=== PATIENT | female | born 1945 | race Caucasian/White ===

== ENCOUNTER 2024-01-25 21:56 | Inpatient (IN) | payer MEDICARE, OTHER, SELFPAY ==
[2024-01-25 17:12] VITALS: BP 93/64
[2024-01-25 20:03] VITALS: BP 95/72
[2024-01-25] MEDS: MORPHINE SULFATE 4 MG IV (20:18)
[2024-01-25 20:33] LABS: % Basophils 0.6 % (0-2); % Eosinophils 1.1 % (0-6); % Immature Granulocytes 0.2 % (0-0.5); % Lymphocytes 8.6 % (20.5-51.1); % Monocytes 5.9 % (1.7-9.3); % Neutrophils 83.6 % (42.2-75.2); Absolute Basophils 0.1 10^3/uL (0-0.2); Absolute Eosinophils 0.1 10^3/uL (0-0.7); Absolute Lymphocytes 0.7 10^3/uL (1.2-3.4); Absolute Monocytes 0.5 10^3/uL (0.1-0.6); Absolute Neutrophils 6.7 10^3/uL (1.4-6.5); Hematocrit 38.2 % (37.0-47.0); Hemoglobin 12.3 g/dL (12.0-16.0); Mean Corp Hgb Conc. 32.2 g/dL (33.0-37.0); Mean Corpuscular Hgb 29.9 pg (27.0-31.0); Mean Corpuscular Volume 92.9 fL (81.0-99.0); Nucleated Red Blood Cells % 0 %; Platelet Count 217 10^3/uL (130-400); Red Blood Cell Count 4.11 10^6/uL (4.20-5.40); Red Cell Dist. Width 13.9 % (11.5-14.5)
--- NOTE | 2024-01-25 20:41 | ED.GENMED ---
History of Present Illness
General
Chief Complaint: Vascular Symptoms
Time Seen by Provider: 01/25/24 19:22
History of Present Illness
History of Present Illness:
78-year-old female with history of COPD on 3 L O2, peripheral vascular disease, hypertension, CHF presenting for evaluation of left toe infection. Patient reports about a month ago, she stubbed her first toe. She was managing at home with absent
salt baths, however the nail came off and since then has become increasingly red, swollen, painful. She went to podiatry today, recommending coming to the hospital for evaluation and concern of infection. She denies numbness or tingling. She
denies fever. She denies history of diabetes or toe infections in the past. She denies additional acute medical complaints
Past History
Past History
ED Past Medical History: CAD, CHF, COPD, HTN and Other (Spontaneous pneumothorax, CAD, pulmonary hypertension, tricuspid regurgitation, severe mitral regurgitation)
ED Past Surgical History: Other
Social History
Tobacco: Former smoker
Alcohol: None
Drug: None
Personal:
Living: with family
Phy Exam
Physical Exam
Physical Exam:
General: Well-appearing, no clinical signs of dehydration, nontoxic and in no acute distress
HEENT: protecting airway
Neck: appears supple
CV: Normal heart rate
Resp: No accessory muscle use, no increased work of breathing
Abd: Soft and non-distended, no tenderness to palpation, normal bowel sounds
Extremities: Swelling and erythema to the distal aspect of the left first, second, third toes. Skin breakdown, particularly to the first and third toe with pain on palpation. Distal sensation intact
Neuro: alert, no focal neurologic deficit
: deferred
Rectal: deferred
Psych: Normal affect
Skin: Intact
Course
Orders/Labs/Results
Orders:
Orders
01/25/24 Dinner
Cholesterol Lowering
At Your Request: Limited, Teacher Private Required
Cholesterol Lowering: Sodium, 2 Gram
01/25/24 17:29
CR Foot - Left Min 3 Views Urgent
Comment:
Reason For Exam: pain, non-healing wound
US Periph Venous LOWER Ext LT Urgent
Comment:
Reason For Exam: pain, non-healing wound
01/25/24 19:58
Morphine Sulfate 4 mg IV NOW STA
01/25/24 20:20
CRP [C-Reactive Protein] Urgent
Complete Blood Count/With Diff Urgent
Comprehensive Metabolic Panel Urgent
01/25/24 20:42
Vancomycin 1 Gram/200 ml [Vancocin] 1 gram in 200 ml IV NOW
01/25/24 20:43
Cefepime HCl [Maxipime] 2,000 mg IV NOW STA
01/25/24 21:38
Admit/Transfer Patient As Directed
Co-Sign Provider:
Level of Care: Inpatient admission
Assign to:: IMU- Intermediate Care
Physician / Group: esperanza
Diagnosis: gangrenous toes
Reason for Hospitalization: gangrenous toes
Expected length of stay greater than two midnights?: Yes
ELOS- Estimated Length of Stay in days: 2
I certify the patient meets the requirements for IP care: Yes
Code Status As Directed
Resuscitation Status: Full Code
PRN Pain Medication Management As Directed
May give lesser potent ordered pain med per pt: Yes
preference::
Protocol:: Medication orders for pain may be administered in a
manner that supports deferring to patient preference
when the pt is:
- Requesting an ordered lesser potent pain medication.
Least to most potent pain medications are defined
as: acetaminophen < NSAID < tramadol < opioids
(morphine, oxycodone, hydromorphone).
- Requesting a lesser dose of the same medication IF
ORDERED.
- Requesting a less intrusive route of administration
if both routes are prescribed by the provider (PO <
IV).
01/25/24 21:47
0.9% Sodium Chloride 250 ml [Nss] 250 ml IV BOLUS
01/25/24 22:55
Heparin 4,000 units IV NOW STA
Heparin 73675 Units/250 ml 25,000 units in 250 ml IV PER PROTOCOL
Weight to be used for heparin protocol in kilograms (kg):: 47.4
Protocol:: Vascular Surgery
PTT Goal Range to be used:: PTT 73 to 111 seconds
Order type:: Initial
INITIAL Infusion Dose (UNITS/KG/hr) & then follow protocol:: 18 units/kg/hr
Infusion Dose in UNITS/hr & then follow protocol (UNITS/hr):: 900
INFUSION RATE in mL/hr & then follow protocol (mL/hr):: 9
PTT less than or equal to 64 seconds:: Notify Ordering Provider. obtain orders for rate increase &
possible bolus
PTT 64.1 to 72.9 seconds:: Increase rate by 100 units/hr (+ 1 mL/hr)
PTT 73 to 111 seconds:: Target Range. No change in rate.
PTT 111.1 to 130.9 seconds:: Decrease rate by 100 units/hr (- 1 mL/hr)
PTT 131 to 199.9 seconds:: HOLD for 1 hour. Then decrease rate by 200 units/hr (- 2 mL/hr)
PTT greater than or equal to 200 seconds:: STOP INFUSION. Notify Ordering provider to obtain further orders.
Lab follow-up:: Each change, PTT q6h until 2 consecutive are therapeutic. Then PTT
daily.
VANCOMYCIN Pharmacy to Dose [VANCOCIN Pharmacy to Dose] 1 each Pharmacy To Prepare [Call Pharmacy To Prepare] 0 ml IV PER PROTOCOL
01/25/24 22:55
PODIATRY CONSULT Routine
Consulting Provider: Darcy Herman
Was physician already notified: Yes
Vascular Surgery Consult Routine
Consulting Provider: Sy,Elmer J. III
Was physician already notified: Yes
VTE Contraindication Routine
VTE Mechanical Device Contraindication: Medical Contraindication
Pharmocologic Contraindication: Medical Contraindication
Heparin Protocol- PTT Orders As Directed
PTT per Heparin protocol: -Obtain CBC and baseline PTT - if not already collected.
-Obtain PTT 6 hours from start of infusion. Then, every 6 hours until 2 consecutive
PTT's are therapeutic. Then, PTT Daily.
-With each rate change, obtain PTT every 6 hours until 2 consecutive PTT's are
therapeutic. Then, PTT Daily.
Activity As Directed
Activity Level: As Tolerated
Notify MD As Directed
Notify physician if: PTT is greater than or equal to 200.
Vital Signs As Directed
Frequency: Per unit guidelines
01/25/24 23:29
Complete Blood Count/No Diff Urgent
Comment: Obtain baseline before beginning heparin infusion if not already collected
PTT Urgent
Comment: Obtain baseline before beginning heparin infusion if not already collected
01/26/24 05:28
Complete Blood Count/With Diff IN AM
Comprehensive Metabolic Panel IN AM
01/26/24 08:00
Acetaminophen [Tylenol] 325 mg PO BID
wkdmltiyjpp-nyzlpfcrj-rrhwvbub [Trelegy Ellipta] 1 inh INH R DAILY
Abnormal Lab Results
01/25/24
20:20
RBC 4.11 L 10^6/uL
(4.20-5.40)
MCHC 32.2 L g/dL
(33.0-37.0)
Absolute Neuts (auto) 6.7 H 10^3/uL
(1.4-6.5)
Absolute Lymphs (auto) 0.7 L 10^3/uL
(1.2-3.4)
Neutrophils % 83.6 H %
(42.2-75.2)
Lymphocytes % 8.6 L %
(20.5-51.1)
Potassium 5.7 H mmol/L
(3.5-5.1)
Carbon Dioxide 17 L mmol/L
(22-30)
BUN 38 H mg/dl
(7-17)
Creatinine 1.4 H mg/dL
(0.6-1.0)
Glucose 112 H mg/dl
(70-99)
C-Reactive Protein 34.40 H mg/L
(0.0-10.00)
01/25/24 20:20
01/25/24 20:20
Vital Signs
Initial and Last Documented VS:
Initial Vital Signs
Temp Resp BP Pulse Ox
97.6 F 20 93/64 93
01/25/24 17:12 01/25/24 17:12 01/25/24 17:12 01/25/24 17:12
Last Documented Vital Signs
Temp Pulse Resp BP Pulse Ox
97.4 F 0 32 121/10 47
01/29/24 04:58 01/29/24 05:14 01/29/24 05:10 01/29/24 05:14 01/29/24 05:07
MDM/Problems Addressed
MDM/Problems Addressed:
78-year-old female presenting for evaluation of left toe wound. Vital signs on arrival are significant for mildly low blood pressure.
On exam patient is well-appearing, nontoxic, however uncomfortable secondary to pain. Abnormal examination of the left first, second, third toes with swelling, redness, skin breakdown. Concern for osteomyelitis, know PVD with concern for vascular
insufficiency. X-ray obtained, without obvious evidence of osteomyelitis. DVT ultrasound obtained at request of heavy forger that sent patient in, also normal. Plan for laboratory analysis and admission for nonhealing wounds with concern of
infection, vascular insufficiency. Will plan for broad-spectrum antibiotics and admission. Podiatry on-call made aware, recommending vascular surgery consultation as well.
*Critical Care Note
Total Time (30-74mins, 75-104mins- exclusive of procedures): Not Applicable
ED Attending Note
-
Portions of this chart may have been created with voice recognition software.� Occasional wrong word or��sound alike� substitutions may have occurred due to the inherent limitations of voice recognition software.
Discharge Plan
Departure
Patient Disposition: Admit
Date of Disposition: 01/25/24
Time of Disposition: 21:13
Presentation/result/management discussed w/ accepting MD/DO: Hospitalist
Patient with high blood pressure during this ER visit?: No
Condition: Good
Discharge Problem:
Infection of toe
Interventions
Interventions:
*Risk Screen - Suicide Last Done: 01/25/24 17:12
*General Assessment Last Done: 01/25/24 17:12
*Neglect/Abuse Screening Last Done: 01/25/24 20:26
*ED COVID-19 Vaccine History Last Done: 01/25/24 17:12
*Nursing Disposition Last Done: 01/25/24 22:18
ED- Cardiac Assessment Last Done: 01/25/24 20:25
ED-Peripheral Vascular Assessment Last Done: 01/25/24 20:25
ED-Skin Assessment Last Done: 01/25/24 20:25
Discharge Date and Time
Discharge Date/Time: 01/25/24 22:19
[2024-01-25] MEDS: MAXIPIME 2000 MG IV (20:49)
[2024-01-25 20:52] LABS: ALT (SGPT) 13 U/L (0-35); AST (SGOT) 35 U/L (14-36); Alkaline Phosphatase 65 U/L (38-126); Blood Urea Nitrogen 38 mg/dl (7-17); Carbon Dioxide 17 mmol/L (22-30); Chloride 106 mmol/L (98-107); Estimated Creatinine Clearance 24 ml/min; Glucose 112 mg/dl (70-99); Potassium 5.7 mmol/L (3.5-5.1); Sodium 140 mmol/L (135-145); Total Bilirubin 1.3 mg/dl (0.2-1.3); Total Protein 7.1 g/dl (6.3-8.2); eGFR 38.27
[2024-01-25] MEDS: VANCOCIN 200 IV (21:30)
--- NOTE | 2024-01-25 21:44 | HPS.HSE ---
Family Physician
-
Family Physician: Kaila Soria
Chief Complaint
-
toe gangrene
History of Present Illness
70-year-old female past medical history of chronic hypoxemic respiratory failure secondary to HFpEF, paroxysmal atrial fibrillation, pulmonary hypertension, hypertension, COPD on 3 L baseline, peripheral vascular disease, presenting for left toe
infection. A month ago she stubbed her left big toe. She was managing at home with salt baths however the nail came off and since then the areas become increasingly red, swollen and painful. She went to podiatry today who recommend she come to
the hospital for concern of infection. She denies numbness or tingling. She denies fever. She denies history of diabetes or toe infection in the past.
She drinks 1 glass of wine per night. Denies smoking.
Medical History
Past Medical History
Past Medical History: Reports Other (chronic hypoxemic respiratory failure secondary to HFpEF, paroxysmal atrial fibrillation, pulmonary hypertension, hypertension, COPD on 3 L baseline, peripheral vascular disease)
Past Surgical History: Reports None
Social History
Tobacco: Non-smoker
Alcohol: Daily
Drug: None
Family History
Family History: Not pertinent
Allergies / Home Medications
Allergies reflects when Allergies were last updated in [employer].
Home Medications with original date entered in [employer]
Allergy/Medication List:
Allergies
Allergy/AdvReac Type Severity Reaction Status Date / Time
No Known Allergies Allergy Verified 11/30/22 16:01
Home Medications
fluticasone fur. 200 mcg-umeclid 62.5 mcg-vilant 25 mcg inhalat.powder (Trelegy Ellipta) 1 inh inhalation R DAILY Lung/breathing issues ##0 07/23/21
apixaban 5 mg tablet (Eliquis) 5 mg PO BID #0 tabs 08/25/22
furosemide 40 mg tablet 40 mg PO DAILY #0 tabs 08/25/22
acetaminophen 325 mg tablet (Tylenol) 325 mg PO BID 11/18/24
dapagliflozin propanediol 10 mg tablet (Farxiga) 10 mg PO DAILY 01/25/24
sacubitril 24 mg-valsartan 26 mg tablet (Entresto) 1 tab PO BID 01/25/24
spironolactone 25 mg tablet 25 mg PO DAILY 01/25/24
Review of Systems
-
History Source: Patient
A 12 point ROS was completed and negative except as noted: Yes
Constitutional: Reports No Symptoms
EENT: Reports No Symptoms
Respiratory: Reports No Symptoms
Cardiac: Reports No Symptoms
Abdomen/GI: Reports No Symptoms
: Reports No Symptoms
Musculoskeletal: Reports No Symptoms
Skin: Reports See HPI
Neurological: Reports No Symptoms
Endocrine: Reports No Symptoms
Hematologic/Lymphatic: Reports No Symptoms
Psych: Reports No Symptoms
Physical Exam
Vital Signs
Vital Signs
Temp Pulse Resp BP Pulse Ox
97.6 F 92 20 95/72 97
01/25/24 17:12 01/25/24 20:03 01/25/24 20:03 01/25/24 20:03 01/25/24 20:03
Physical Exam
General: Well Developed, Well Nourished and No Apparent Distress
HEENT: NormoCephalic, Moist mucous membranes and Atraumatic
Respiratory: Clear
Cardiac: S1/S2 and Regular Rhythm; No Murmur or Rub
GI: Soft, Non Tender, Non Distended and Normal Bowel Sounds; No Organomegaly
Rectal: Deferred by Provider
Musculoskeletal: No Clubbing, No Cyanosis and No Edema
Skin: Other (left first to thurd toe redness, tenderness and gangrene under toenails ); No Rash
Neuro: Nonfocal/grossly intact
Laboratory Results
-
01/25/24 20:20
01/25/24 20:20
Laboratory Results
Total Bilirubin 1.3 mg/dl (0.2-1.3) 01/25/24 20:20
AST 35 U/L (14-36) 01/25/24 20:20
ALT 13 U/L (0-35) 01/25/24 20:20
Alkaline Phosphatase 65 U/L (38-126) 01/25/24 20:20
Data Reviewed
-
Lab Data: Labs Reviewed by me
Old Records: Reviewed
Impression/Plan
-
IMPRESSION:
PLAN:
# Infected left 1st-3rd toes with gangrene concern for underlying vascular insufficiency
# History of peripheral vascular disease
-Foot x-ray negative for osteomyelitis
-Venous ultrasound negative for DVT
-Vancomycin/Zosyn
-Podiatry consult
-Vascular surgery consulted
-Hold Eliquis and change to heparin drip
# Hypotension likely secondary to diuretics
-Systolic blood pressure 90s
-Hold diuretics
Chronic hypoxemic respiratory failure secondary to chronic HFpEF
-Hold spironolactone and Lasix, Entresto due to hypotension
-Hold dapagliflozin
Paroxysmal atrial fibrillation
-Hold Eliquis
-Start heparin drip
Pulmonary hypertension
COPD on 3 L baseline
-Continue Trelegy Ellipta
Essential hypertension
Full code
DVT prophylaxis�heparin drip
Cardiac diet
[2024-01-25 21:48] VITALS: BP 100/56
[2024-01-25 22:12] VITALS: BP 98/85
[2024-01-25 22:17] VITALS: BP 98/85
[2024-01-25 22:40] VITALS: BP 90/57
--- NOTE | 2024-01-25 23:05 | PHA.VAN.IN ---
Assessment
- Assessment
Renal Function: Appears elevated from baseline (02/13/23 BASELINE SCR: 1.1)
Concomitant Antimicrobials: ZOSYN
- Previous Dosing Experience
Previous Regimen: NONE
Plan
- Plan
Initial / Loading Dose: 1GM
Maintenance Regimen: DOSING BY RANDOM LEVELS
Monitoring: RANDOM VANCOMYCIN LEVEL 01/26/24 AM
Pharmacokinetics Vancomycin I
- -
Patient Age: 78
Patient Sex: Female
Vancomycin Day #: 1
Indication: Skin And Soft Tissue (GANGRENE)
Requesting Provider: BRITTA
Height / Weight:
Height 5 ft 6 in
Actual Weight 47.4 kg
- Vital Signs / Lab Results
Temp Pulse Resp BP Pulse Ox
97.8 F 89 14 98/85 99
01/25/24 22:58 01/25/24 22:17 01/25/24 22:17 01/25/24 22:17 01/25/24 21:48
Lab Results - Hematology
01/25/24
20:20
WBC 8.0
Lab Results - Chemistry
01/25/24
20:20
BUN 38 H
Creatinine 1.4 H
Estimated Creat Clear 24
Albumin 4.0
[2024-01-25] MEDS: NSS 250 IV (23:11)
[2024-01-25] MEDS: DESENEX/MITRAZOL/ZEASORB TOPICAL (23:21)
[2024-01-25] MEDS: HEPARIN 4000 UNITS IV (23:30)
[2024-01-25] MEDS: HEPARIN 25000 UNITS/250 ML IV (23:36)
[2024-01-25 23:38] LABS: Hematocrit 36.7 % (37.0-47.0); Hemoglobin 11.8 g/dL (12.0-16.0); Mean Corp Hgb Conc. 32.2 g/dL (33.0-37.0); Mean Corpuscular Hgb 29.8 pg (27.0-31.0); Mean Corpuscular Volume 92.7 fL (81.0-99.0); Mean Platelet Volume 8.8 fL (7.4-10.4); Platelet Count 186 10^3/uL (130-400); Red Blood Cell Count 3.96 10^6/uL (4.20-5.40); Red Cell Dist. Width 13.9 % (11.5-14.5); White Blood Cell Count 7.1 10^3/uL (4.8-10.8)
[2024-01-26] VITALS (26 sets, daily range): BP systolic 69–119; BP diastolic 38–89; BMI 16.2
[2024-01-26] MEDS: ZOSYN 50 IV ×4 (01:23→20:33)
--- NOTE | 2024-01-26 05:38 | PTCARENOTE ---
Recieved patient from the ED overnight. 250 ml bolus infused for soft BPs. Heparin gtt initiated per order. B/l foot wounds open to air.
[2024-01-26 05:46] LABS: % Basophils 0.6 % (0-2); % Eosinophils 4.5 % (0-6); % Immature Granulocytes 0.5 % (0-0.5); % Monocytes 8.2 % (1.7-9.3); % Neutrophils 72.2 % (42.2-75.2); Absolute Eosinophils 0.3 10^3/uL (0-0.7); Absolute Lymphocytes 0.9 10^3/uL (1.2-3.4); Absolute Monocytes 0.5 10^3/uL (0.1-0.6); Absolute Neutrophils 4.7 10^3/uL (1.4-6.5); Hematocrit 38.3 % (37.0-47.0); Hemoglobin 12.2 g/dL (12.0-16.0); Mean Corp Hgb Conc. 31.9 g/dL (33.0-37.0); Mean Corpuscular Hgb 29.8 pg (27.0-31.0); Mean Corpuscular Volume 93.4 fL (81.0-99.0); Mean Platelet Volume 8.7 fL (7.4-10.4); Nucleated Red Blood Cells % 0 %; Platelet Count 200 10^3/uL (130-400); Red Cell Dist. Width 13.9 % (11.5-14.5); White Blood Cell Count 6.4 10^3/uL (4.8-10.8)
[2024-01-26 06:07] LABS: APTT > 200 Sec (23.4-35.0); Vancomycin Random 14.5 ug/ml
[2024-01-26 06:14] LABS: ALT (SGPT) 12 U/L (0-35); AST (SGOT) 30 U/L (14-36); Albumin 3.8 g/dl (3.5-5.0); Alkaline Phosphatase 69 U/L (38-126); Blood Urea Nitrogen 35 mg/dl (7-17); Calcium 9.1 mg/dl (8.4-10.2); Carbon Dioxide 21 mmol/L (22-30); Chloride 108 mmol/L (98-107); Estimated Creatinine Clearance 23 ml/min; Glucose 95 mg/dl (70-99); Sodium 141 mmol/L (135-145); Total Bilirubin 1.4 mg/dl (0.2-1.3); eGFR 38.27
--- NOTE | 2024-01-26 06:16 | PTCARENOTE ---
Addendum entered by Sadaf Galvin RN 01/26/24 06:25:
yard caller provider ordered to hold heparin x2 hours and repeat PTT.
Original Note:
Critical PTT greater than 200. Infusion placed on hold and almond sorter provider notified.
[2024-01-26] MEDS: SYMBICORT 160/4.5 MCG INHALER 2 PUFF INH ×2 (07:43→19:10)
[2024-01-26] MEDS: SPIRIVA RESPIMAT 2.5 MCG 2 PUFF INH (07:43)
--- NOTE | 2024-01-26 08:39 | PHA.VAN.FU ---
Vancomycin Assessment / Plan
- Assessment
Renal Function: Stable
WBC's are: WNL
In the past 24 hrs, patient has been: Afebrile
Concomitant Antimicrobials: piperacillin/tazobactam
- Assessment - Therapeutic Drug Monitoring
Random Level: 14.5 - drawn ~8H after 1000mg initial dose
- Dosing Plan
Dosing by Level: Re-dose today (Vanc 500mg)
- Monitoring Plan
Random Level: 01/26 06
- Follow Up
Pharmacy will continue to follow.
Vancomycin Follow UP
- -
Patient Age: 78
Patient Sex: Female
Vancomycin Day #: 2
Indication: Skin And Soft Tissue
Requesting Provider: Dr. Adamson
Pertinent Antimicrobial Allergies:
NKDA
Height / Weight:
Height 5 ft 6 in
Actual Weight 45.6 kg
IBW in k
Pertinent Past Medical History: BMI ~16, COPD (home O2)
- Vital Signs / Lab Results
Temp Pulse Resp BP Pulse Ox
97.8 F 88 18 102/57 97
01/26/24 07:38 01/26/24 07:46 01/26/24 07:46 01/26/24 06:00 01/26/24 07:46
Lab Results - Hematology
01/25/24 01/25/24 01/26/24
20:20 23:29 05:28
WBC 8.0 7.1 6.4
Lab Results - Chemistry
01/25/24 01/26/24
20:20 05:28
BUN 38 H 35 H
Creatinine 1.4 H 1.4 H
Estimated Creat Clear 24
Albumin 4.0 3.8
Therapeutic Drug Monitoring
Random Vancomycin 14.5 ug/ml 01/26/24 05:28
[2024-01-26] MEDS: TYLENOL 325 MG PO ×2 (08:45→20:32)
[2024-01-26] MEDS: DESENEX/MITRAZOL/ZEASORB 1 APPLIC TOPICAL ×2 (08:46→20:35)
--- NOTE | 2024-01-26 08:53 | W.PN.HOSP.TC ---
Today's Communication/Plan
-
Heparin drip. IV antibiotics. IV fluid.
Assessment / Plan
Assessment / Plan
Physical exam:
General: Well Developed, Well Nourished and No Apparent Distress
HEENT: NormoCephalic, Moist mucous membranes and Atraumatic
Respiratory: Clear
Cardiac: S1/S2 and Regular Rhythm; No Murmur or Rub
GI: Soft, Non Tender, Non Distended and Normal Bowel Sounds; No Organomegaly
Rectal: Deferred by Provider
Musculoskeletal: No Clubbing, No Cyanosis and No Edema
Skin: Other (left first to thurd toe redness, tenderness and gangrene under toenails ); No Rash
Neuro: Nonfocal/grossly intact
A/P:
# Infected left 1st-3rd toes with gangrene concern for underlying vascular insufficiency
# History of peripheral vascular disease
-Foot x-ray negative for osteomyelitis
-Venous ultrasound negative for DVT
-Vancomycin/Zosyn
-Podiatry consult appreciated
-Vascular surgery consulted and appreciated input--> planning to do CTA with runoff but given LARA, holding off for now.
-Hold Eliquis and changed to heparin drip
# Hypotension likely secondary to diuretics and mild volume depletion.
-Systolic blood pressure 90s--> it dropped again today so given a bolus and will continue with some maintenance fluids and asked nephrology to evaluate as well.
-Hold diuretics
-IVF
#LARA
Nephrology consult-discussed with nephrology via [facility] text today
Chronic hypoxemic respiratory failure secondary to chronic HFpEF and COPD
-Continue 3 L of oxygen which is her home baseline
-Hold spironolactone and Lasix, Entresto due to hypotension
-Hold dapagliflozin
Paroxysmal atrial fibrillation
-Hold Eliquis
-Continue heparin drip
Pulmonary hypertension
COPD on 3 L baseline
-Continue Trelegy Ellipta
Essential hypertension
Full code
DVT prophylaxis�heparin drip
Time spent 55 minutes
Anticipated Discharge: > 48 hours
Subjective/Interval History
-
Date of Service: January 26, 2024
Patient does have left lower extremity pain. No chest pain or shortness of breath.
Objective Data
-
Labs:
Laboratory Results
01/25/24 01/25/24 01/26/24
20:20 23:29 05:28
WBC 7.1 6.4
Hgb 11.8 L 12.2
Hct 36.7 L 38.3
Plt Count 186 200
APTT 35.0 > 200 H*
Sodium 140 141
Potassium 5.7 H 5.0
Chloride 106 108 H
Carbon Dioxide 17 L 21 L
BUN 38 H 35 H
Creatinine 1.4 H 1.4 H
Glucose 112 H 95
Calcium 9.0 9.1
Total Bilirubin 1.3 1.4 H
AST 35 30
ALT 13 12
Alkaline Phosphatase 65 69
01/26/24
08:30
WBC
Hgb
Hct
Plt Count
APTT Pending
Sodium
Potassium
Chloride
Carbon Dioxide
BUN
Creatinine
Glucose
Calcium
Total Bilirubin
AST
ALT
Alkaline Phosphatase
Vital Signs:
Vital Signs
Temp Pulse Resp BP Pulse Ox
97.8 F 88 18 102/57 97
01/26/24 07:38 01/26/24 07:46 01/26/24 07:46 01/26/24 06:00 01/26/24 07:46
I&O
01/25/24 01/26/24 01/27/24
06:59 06:59 06:59
Intake Total 300 / 300
Output Total 150 / 150
Balance 150 / 150
[2024-01-26 09:48] LABS: APTT 52.2 Sec (23.4-35.0)
--- NOTE | 2024-01-26 09:51 | CON.VAS ---
Addendum entered and electronically signed by Elmer Sy III, MD 01/26/24 11:50:
This patient was seen and examined with KATH Saunders. I agree with the history and physical exam as well as the assessment and plan. I have the following additions:
78-year-old female with multiple advanced medical comorbidities presents with chronic limb threatening ischemia of the left foot with ischemic rest pain and tissue loss.
Advanced COPD with home oxygen requirement
Nonpalpable pedal pulses bilaterally
Nonpalpable left femoral pulse
Will obtain vascular lab studies
Also obtain CT angiogram of the abdomen, pelvis and bilateral lower extremity runoff given absent femoral pulse and possible aortoiliac/iliofemoral disease
Will follow and formulate a surgical plan once imaging is complete
Signed:
Elmer Sy III, MD
[facility] Vascular Surgery
[phone] (emnr)
Original Note:
Consultation
Consultation Request
Performing Provider: Yossi
Reason for Consultation: Gangrene
Medical History
-
Chief Complaint: Left toe gangrene
History of Present Illness:
78 yo female past medical history of chronic hypoxemic respiratory failure secondary to HFpEF, paroxysmal atrial fibrillation, pulmonary hypertension, hypertension, COPD on 3 L baseline, peripheral vascular disease, presenting for left foot toe
infection. Per the patient she stubbed her left big toe about a month ago. Since then her first and second toe nail were ingrown. She used salt bath soaks daily and recently removed her toe nails. Following this the toes became red and painful. She
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 She denies history of wound healing issues. Nonsmoker, drinks wine daily.
Vascular consult for PAD evaluation. Pt seen at bedside this am with Dr Sy. Images of BL feet below.
Left foot
Right foot
Past Medical History
Past Medical History: Other (chronic hypoxemic respiratory failure secondary to HFpEF, paroxysmal atrial fibrillation, pulmonary hypertension, hypertension, COPD on 3 L baseline, peripheral vascular disease)
Past Surgical History: None
Social History
Tobacco: Non-Smoker
Alcohol: Daily
Drug: None
Family History
Family History: Reviewed & Not Pertinent
Allergies / Home Medications
Allergy/AdvReac Type Severity Reaction Status Date / Time
No Known Allergies Allergy Verified 11/30/22 16:01
�Medication �Instructions �Recorded �Confirmed �Type
fluticasone fur. 200 mcg-umeclid 1 inh inhalation R DAILY 07/23/21 01/25/24 History
62.5 mcg-vilant 25 mcg Lung/breathing issues ##0
inhalat.powder (Trelegy Ellipta)
acetaminophen 325 mg tablet 325 mg PO BID Pain 01/25/24 01/25/24 History
(Tylenol)
dapagliflozin propanediol 10 mg 10 mg PO DAILY Diabetes 01/25/24 01/25/24 History
tablet (Farxiga)
sacubitril 24 mg-valsartan 26 mg 1 tab PO BID Heart 01/25/24 01/25/24 History
tablet (Entresto) Disease/Condition
spironolactone 25 mg tablet 25 mg PO DAILY Fluid 01/25/24 01/25/24 History
Retention/Swelling
apixaban 5 mg tablet (Eliquis) 5 mg PO BID Blood Clot 01/26/24 01/25/24 History
Prevention/Tx
furosemide 40 mg tablet 40 mg PO DAILY Fluid 01/26/24 01/25/24 History
Retention/Swelling
Review of Systems
-
History Source: Patient
All other systems: Negative unless noted
Constitutional: Reports No Symptoms
EENT: Reports No Symptoms
Respiratory: Reports No Symptoms
Cardiac: Reports No Symptoms
Vascular: Denies Leg Pain / Claudication
Abdomen/GI: Reports No Symptoms
: Reports No Symptoms
Musculoskeletal: Reports No Symptoms
Skin: Reports Other (Left 1st and 2nd toe gangrene)
Neurological: Reports No Symptoms
Endocrine: Reports No Symptoms
Physical Exam
Vital Signs
Temp Pulse Resp BP Pulse Ox
97.8 F 88 18 102/57 97
01/26/24 07:38 01/26/24 07:46 01/26/24 07:46 01/26/24 06:00 01/26/24 07:46
Lab Results
01/26/24 05:28
01/26/24 05:28
Physical Exam
General: No Apparent Distress
HEENT: Normocephalic and Atraumatic
Respiratory: Non Labored Respirations
Cardiac: Negative JVD
GI: Soft and Non Tender
Musculoskeletal: No Clubbing, No Cyanosis and No Edema
Skin: Warm, Dry and Other (See images above)
Neuro: Awake, Alert and Oriented
Psych: Calm
Pulses: Bilateral Femoral: Doppler (nonpalp), Bilateral Dorsalis Pedis: Doppler (Nonpalp) and Bilateral Posterior Tibial: Doppler (nonpalp)
Assessment / Plan
-
78 yo female with nonhealing BL foot wounds L>R, pain
Plan:
-CTA runoff when ok from nephrology standpoint
-Nephrology consult for creat 1.4
-Likely will require arteriogram on this admission
-Will follow up with plan after scan complete
-Team aware
Data Reviewed
-
Labs: Labs Reviewed by me
[2024-01-26] MEDS: NSS 1000 IV ×2 (10:37→15:09)
--- NOTE | 2024-01-26 10:50 | PTCARENOTE ---
Assumed care of pt this am, pt is easily arousable but slow verbal responses, speech is clear and pt moving all extremities. Pt tolerating small breakfast. Oxygen at 3L nc which is her baseline. Lungs clear through out. Abd flat soft, no Bm at this
time. Pt tolerated eggs and oJ. No urinary output since 714. Pt hypotensive, IV FLUID bolus ordered and initiated. Vascular team assessed pt this am and order for scan. Pedal pulses are not palpable. bilateral dorsal pedis not found with doppler,
Rt posterior tibial weak with doppler bilateral popliteal weak with doppler and bilateral groin weak with doppler. Heparin of this am for >200 PTT, lab obtained and result is 52.2, Dr. Dominguez at bedside and notified of lab result. Order obtained and
Heparin gtt resumed at 800 units-will recheck PTT per protocol. Pt's called and verbal update on eriberto of care provided to him. Pt resting comfortably on her side at this time. Nephrology consulted also.
--- NOTE | 2024-01-26 10:52 | CON.MD ---
Consultation - Medical
-
Consult Dr Kavita Caputo 01/25/24 @ 2009
Consult performed by Dr Darcy Herman 01/26/24 @ 1050
Chief Complaint:
Gangrene toes left foot
History of Present Illness:
This is a 70-year-old female past medical history of chronic hypoxemic respiratory failure secondary to HFpEF, paroxysmal atrial fibrillation, pulmonary hypertension, hypertension, COPD on 3 L baseline, peripheral vascular disease, presenting for
left toe infection. A month ago she stubbed her left big toe. She was managing at home with salt baths however the nail came off and since then the areas become increasingly red, swollen and painful. She went to see Dr Luong, podiatry 01/25/24
who recommended she go to the ED. She denies fever. She admits to pain in her feet and toes left
Medical History
Past Medical History: Reports Other (chronic hypoxemic respiratory failure secondary to HFpEF, paroxysmal atrial fibrillation, pulmonary hypertension, hypertension, COPD on 3 L baseline, peripheral vascular disease)
Past Surgical History: Reports None
Social History
Tobacco: Non-smoker
Alcohol: Daily
Drug: None
Family History
F
amily History: Not pertinent
Allergies / Home Medications
Allergies reflects when Allergies were last updated in [facility].
Home Medications with original date entered in [facility]
Allergy/Medication List:
Allergies
Allergy/AdvReac Type Severity Reaction Status Date / Time
No Known Allergies Allergy Verified 11/30/22 16:01
Home Medications
fluticasone fur. 200 mcg-umeclid 62.5 mcg-vilant 25 mcg inhalat.powder (Trelegy Ellipta) 1 inh inhalation R DAILY Lung/breathing issues ##0 07/23/21
apixaban 5 mg tablet (Eliquis) 5 mg PO BID #0 tabs 08/25/22
furosemide 40 mg tablet 40 mg PO DAILY #0 tabs 08/25/22
acetaminophen 325 mg tablet (Tylenol) 325 mg PO BID 01/25/24
dapagliflozin propanediol 10 mg tablet (Farxiga) 10 mg PO DAILY 01/25/24
sacubitril 24 mg-valsartan 26 mg tablet (Entresto) 1 tab PO BID 01/25/24
spironolactone 25 mg tablet 25 mg PO DAILY 01/25/24
Review of Systems
-
History Source: Patient
A 12 point ROS was completed and negative except as noted: Yes
Physical Exam
Vital Signs
Vital Signs
Temp Pulse Resp BP Pulse Ox
97.6 F 92 20 95/72 97
01/25/24 17:12 01/25/24 20:03 01/25/24 20:03 01/25/24 20:03 01/25/24 20:03
Physical Exam
General: Well Developed, Well Nourished and No Apparent Distress
LE focused: gangrene -dry to toes 1,2,3 left foot. Legs and feet cool to touch ,pedal pulses are non palpable
No cellultiis noted to legs. She is guarding and retracting legs as result of pain
Laboratory Results
-
Laboratory Results
Total Bilirubin 1.3 mg/dl (0.2-1.3) 01/25/24 20:20
AST 35 U/L (14-36) 01/25/24 20:20
ALT 13 U/L (0-35) 01/25/24 20:20
Alkaline Phosphatase 65 U/L (38-126) 01/25/24 20:20
XRAYS- personally reviewed, no overt sign of PM to the distal phalynx at this time
Data Reviewed
Lab Data: Labs Reviewed by me
Old Records: Reviewed
Impression/Plan
Peripheral arterial disease with dry gangrene to toes left foot
Pain LLE
--rec betadine swabs to toes daily, once revasc will follow as they demarcate for change to wound care or possible amps if needed, will follow prn
-
[2024-01-26] MEDS: VANCOCIN HCL 500 MG 100 IV (11:46)
--- NOTE | 2024-01-26 12:28 | W.CON.NEPH ---
Consultation
-
Date/Time Consultation Requested: 01/26/24 1009
Date/Time Consultation Performed: 01/26/24 1030
Requesting Provider: Juleit Anaya CRNP
Performing Provider: Cristal Melara
Reason for Consultation: Lara vs CKD
Medical History
-
Chief Complaint: Toe gangrene
History of Present Illness:
70-year-old female past medical history of chronic hypoxemic respiratory failure on 3lit O2 cor pulmonale, COPD, HFpEF on lasix, Aldactone, Entresto, Farxiga, severe MR, paroxysmal atrial fibrillation on Eliquis, hypertension, peripheral vascular
disease, presenting for left toe infection referred by podiatry. A month ago she stubbed her left big toe. She was managing at home with salt baths however the nail came off and since then the areas become increasingly red, swollen and painful.
She went to podiatry today who recommend she come to the hospital for concern of infection. She denies fever. She denies history of diabetes. Brand Designer CP or SOB or n/v. No abd pain. HIstory is limited during visit SBP are at 70s.NS bolus just started.
SHe denies any dizziness. Her cr since admit was at 1.4, previously at 1.1 in 02/2023. K was high at 5.7 on admit since improved to 5 this am.
Past Medical History
chronic hypoxemic respiratory failure secondary to HFpEF, paroxysmal atrial fibrillation, pulmonary hypertension, hypertension, COPD on 3 L baseline, peripheral vascular disease
Social History
Tobacco: Non-Smoker
Alcohol: Daily
Drug: None
Personal:
Living: With Family
Family History
no CKD
Family History: Not Pertinent
Allergies / Home Medications
Allergy/AdvReac Type Severity Reaction Status Date / Time
No Known Allergies Allergy Verified 11/30/22 16:01
�Medication �Instructions �Recorded �Confirmed �Type
fluticasone fur. 200 mcg-umeclid 1 inh inhalation R DAILY 07/23/21 01/25/24 History
62.5 mcg-vilant 25 mcg Lung/breathing issues ##0
inhalat.powder (Trelegy Ellipta)
acetaminophen 325 mg tablet 325 mg PO BID Pain 01/25/24 01/25/24 History
(Tylenol)
dapagliflozin propanediol 10 mg 10 mg PO DAILY Diabetes 01/25/24 01/25/24 History
tablet (Farxiga)
sacubitril 24 mg-valsartan 26 mg 1 tab PO BID Heart 01/25/24 01/25/24 History
tablet (Entresto) Disease/Condition
spironolactone 25 mg tablet 25 mg PO DAILY Fluid 01/25/24 01/25/24 History
Retention/Swelling
apixaban 5 mg tablet (Eliquis) 5 mg PO BID Blood Clot 01/26/24 01/25/24 History
Prevention/Tx
furosemide 40 mg tablet 40 mg PO DAILY Fluid 01/26/24 01/25/24 History
Retention/Swelling
Review of Systems
-
limited history
All complete 12 point ROS have been inquired and found negative other than stated in HPI
Physical Exam
Vital Signs
Vital Signs
Temp Pulse Resp BP Pulse Ox
97.8 F 88 18 102/57 97
01/26/24 07:38 01/26/24 07:46 01/26/24 07:46 01/26/24 06:00 01/26/24 07:46
Lab Results
WBC 6.4 10^3/uL (4.8-10.8) 01/26/24 05:28
RBC 4.10 10^6/uL (4.20-5.40) L 01/26/24 05:28
Hgb 12.2 g/dL (12.0-16.0) 01/26/24 05:28
Hct 38.3 % (37.0-47.0) 01/26/24 05:28
Plt Count 200 10^3/uL (130-400) 01/26/24 05:28
Sodium 141 mmol/L (135-145) 01/26/24 05:28
Potassium 5.0 mmol/L (3.5-5.1) 01/26/24 05:28
Chloride 108 mmol/L (98-107) H 01/26/24 05:28
Carbon Dioxide 21 mmol/L (22-30) L 01/26/24 05:28
BUN 35 mg/dl (7-17) H 01/26/24 05:28
Creatinine 1.4 mg/dL (0.6-1.0) H 01/26/24 05:28
eGFR 38.27 01/26/24 05:28
Glucose 95 mg/dl (70-99) 01/26/24 05:28
Calcium 9.1 mg/dl (8.4-10.2) 01/26/24 05:28
Albumin 3.8 g/dl (3.5-5.0) 01/26/24 05:28
Physical Exam
General: Awake, Alert, Oriented, AOx3, No Distress and Nontoxic
HEENT: EOMI, Anicteric, Facial Symmetry and Trachea Midline
Respiratory: Clear, Normal Excursion and Nonlabored Respirations
Cardiac: S1/S2 and Regular Rate/Rhythm
Breast: Deferred by me
Abdomen: Soft, Nontender and Nondistended
Musculoskeletal: No Edema
Skin: Other (erythema of feet and toe gangrene noted left foot. no DPS, feels could to touch)
Neuro: Nonfocal/Grossly Intact
Psych: Appropriate
Data Reviewed
-
Radiology: Report Reviewed by me and Discussed with Family
Labs: Labs Reviewed by me, Discussed with Patient and Discussed with Family
Assessment/Plan
-
IMP:
Infected left 1st-3rd toes with gangrene concern for underlying vascular insufficiency
History of peripheral vascular disease
Hypotension
LARA with CKD baseline cr 1.1 in 02/2023
Mild A gap met acidosis
Chronic hypoxemic respiratory failure, COPD
chronic HFpEF
Paroxysmal atrial fibrillation
Pulmonary hypertension
COPD on 3 L baseline
Essential hypertension
Plan;
A/w chr left LE ischemic symp
LARA-mild likely from hypotension
cont IVF and monitor UOP
check bladder scan, also FEna , baseline renal US
has underlying pulm HTN too
currently holding lasix, Entresto, Farxiga and Aldactone
avoid nephrotoxins
mild met acidosis -improving
ALMA risk based on current status is 57%(included hypotension and CHF in to the formula)-this was reviewed with
who wants to wait for cr to get better prior contrast load-which I agree with
once BP stabilizes can use bicarb IVF for ALMA prevention
All risk factors can not be modifiable, at the best ALMA risk is 26%, dialysis risk 1%
ok to proceed with CTA once cr return close to baseline
abx dose renally per primary
vol status seem stable currently
on heparin gtt
d/w vascular and nursing
d/w on phone
--- NOTE | 2024-01-26 13:05 | WOUNDNOTE ---
[facility] RN note: Patient admitted with
See H&P for complete history.
PMH: Per Dr. Herman's note-This is a 70-year-old female past medical history of chronic hypoxemic respiratory failure secondary to HFpEF, paroxysmal atrial fibrillation, pulmonary hypertension, hypertension, COPD on 3 L baseline, peripheral
vascular disease, presenting for left toe infection. A month ago she stubbed her left big toe. She was managing at home with salt baths however the nail came off and since then the areas become increasingly red, swollen and painful. She went to
see Dr Luong, podiatry 01/25/24 who recommended she go to the ED.
Wound Location and type/assessment: Patient admitted with: Painful to touch L toes and heel. L lateral foot with dry eschar, heel with 4 linear dry cracks. L Great toe, 2nd and 3rd with dry sanabria eschar. R plantar with dry crack and 2nd toe scab.
Both legs dry and red, PAD ulcers. Reviewed vascular notes, per AZAR Hedrick, non palpable pedal pulses, will follow and decide on surgical intervention once imaging complete. L foot x ray negative osteomyelitis, and ultrasound negative for DVT.
Patient turned self in bed, Sacrum is intact, sacral silicone foam in use.
Appetite: Fair. Had yogurt for breakfast.
Pressure redistribution devices in place: On air mattress can turn self. Air cushion on pillow under calves to offload heel
Plan: Foam adhesives applied to heels, offloading in place. Painted eschar with Betadine per Dr. Herman.
Will confirm orders with hospitalist and updated nurse. Updated care plan and will follow peripherally as needed.
Note to case management of equipment requested for discharge: TBD
Recommend follow up with vascular.
--- NOTE | 2024-01-26 16:01 | CM ---
CM met with pt bedside
Resides at home with her spouse- multistory house with 2TE
Full flight to 2nd floor
Pt notes independence with her ambulation and most personal care tasks with use of a SPC
Spouse assists with managing stairs and occasionally with personal care tasks if needed
Pt is on 3LO2 provided through [facility]
Denies financial insecurities
PCP- Kaila Soria
Rx- Emma Ordaz
Pt will likely benefit from PT/OT evals once appropriate
Hx at [facility]
Discharge Disposition- home, follow for higher needs
[2024-01-26 16:33] LABS: Urine Albumin Negative (Neg - Trace); Urine Bilirubin Negative (Negative); Urine Character Clear (Clear); Urine Color Yellow; Urine Glucose 2+ (Negative); Urine Ketone Negative (Negative); Urine Leukocyte Negative (Negative); Urine Nitrite Negative (Negative); Urine Occult Blood Negative (Negative); Urine Specific Gravity 1.015 (<1.030); Urine Urobilinogen Negative (Neg - 1+)
[2024-01-26 16:57] LABS: Urine Sodium 99 mmol/L (30-90)
[2024-01-26 18:04] LABS: APTT 169.8 Sec (23.4-35.0)
[2024-01-26] MEDS: NSS 250 IV (18:32)
--- NOTE | 2024-01-26 19:21 | PTCARENOTE ---
Patient BP dropping, heart rate 105, pt asymptomatic and at baseline LOC. Notified, EKG completed, IV Bolus given. BP 81/58map(65)awaiting lactic. Much difficulty obtaining EKG due to tremors.
[2024-01-26 19:48] LABS: % Basophils 0.7 % (0-2); % Eosinophils 3.9 % (0-6); % Immature Granulocytes 0.4 % (0-0.5); % Monocytes 8.7 % (1.7-9.3); % Neutrophils 76.3 % (42.2-75.2); Absolute Eosinophils 0.2 10^3/uL (0-0.7); Absolute Lymphocytes 0.5 10^3/uL (1.2-3.4); Absolute Monocytes 0.5 10^3/uL (0.1-0.6); Absolute Neutrophils 4.1 10^3/uL (1.4-6.5); Hematocrit 30.2 % (37.0-47.0); Hemoglobin 9.6 g/dL (12.0-16.0); Mean Corp Hgb Conc. 31.8 g/dL (33.0-37.0); Mean Corpuscular Hgb 29.9 pg (27.0-31.0); Mean Corpuscular Volume 94.1 fL (81.0-99.0); Nucleated Red Blood Cells % 0 %; Platelet Count 163 10^3/uL (130-400); Red Blood Cell Count 3.21 10^6/uL (4.20-5.40); Red Cell Dist. Width 14.2 % (11.5-14.5); White Blood Cell Count 5.4 10^3/uL (4.8-10.8)
[2024-01-26 19:49] LABS: Lactic Acid 1.3 mmol/L (0.7-2.0)
[2024-01-26 20:05] LABS: Blood Urea Nitrogen 21 mg/dl (7-17); Calcium 5.4 mg/dl (8.4-10.2); Carbon Dioxide 14 mmol/L (22-30); Chloride 121 mmol/L (98-107); Estimated Creatinine Clearance 36 ml/min; Glucose 96 mg/dl (70-99); Potassium 3.3 mmol/L (3.5-5.1); Sodium 143 mmol/L (135-145); eGFR > 60.00
[2024-01-26] MEDS: ProAmatine 10 MG PO (20:45)
--- NOTE | 2024-01-26 21:15 | W.PN.UPDATE ---
Update Note
Progress Note Update
RN notified DATA VIRTUALIZATION CONSULTANT of MAP 59, On NSS @ 75CC, received 2l total fluids, has hx of CHF, will order Midodrine 10mg PO now. Lab results noted, will repeat labs, Dr. Tamez made aware.
Repeat labs noted. Ca 7.4, will replete.
RN notified DATA VIRTUALIZATION CONSULTANT of HR 90's but with bursts of 130's, controlled to uncontrolled Afib. Patient afebrile, soft BP 80's-90's/60'.
1 hour later HR noted staying in 130's -140s. QTC prolonged. Patient seen, asymptomatic.
CBC and mag ordered stat
will give Metoprolol 2.5mg IV once.
89 VS in AM
[2024-01-26 21:39] LABS: Blood Urea Nitrogen 29 mg/dl (7-17); Calcium 7.9 mg/dl (8.4-10.2); Carbon Dioxide 19 mmol/L (22-30); Chloride 109 mmol/L (98-107); Estimated Creatinine Clearance 23 ml/min; Glucose 127 mg/dl (70-99); Potassium 4.9 mmol/L (3.5-5.1); Sodium 140 mmol/L (135-145); eGFR 38.27
[2024-01-27] VITALS (51 sets, daily range): BP systolic 78–107; BP diastolic 45–94
--- NOTE | 2024-01-27 00:05 | PTCARENOTE ---
Pt started with afib RVR, EKG taken. HR sustaining 120s-130s, but busts noted as high as 178. Pt denies symptoms at this time. KATH Jennings notified via TT
[2024-01-27] MEDS: CALCIUM GLUCONATE 100 IV (00:14)
[2024-01-27 00:48] LABS: APTT 101.6 Sec (23.4-35.0)
[2024-01-27] MEDS: LOPRESSOR 2.5 MG IV (01:52)
[2024-01-27 02:06] LABS: Hematocrit 34.2 % (37.0-47.0); Hemoglobin 10.7 g/dL (12.0-16.0); Mean Corp Hgb Conc. 31.3 g/dL (33.0-37.0); Mean Corpuscular Hgb 29.5 pg (27.0-31.0); Mean Corpuscular Volume 94.2 fL (81.0-99.0); Mean Platelet Volume 9.2 fL (7.4-10.4); Platelet Count 202 10^3/uL (130-400); Red Blood Cell Count 3.63 10^6/uL (4.20-5.40); Red Cell Dist. Width 14.1 % (11.5-14.5)
[2024-01-27 02:23] LABS: Magnesium 2.2 mg/dl (1.6-2.3)
[2024-01-27] MEDS: ZOSYN 50 IV ×4 (03:09→19:31)
[2024-01-27] MEDS: NSS 1000 IV (04:21)
[2024-01-27 06:54] LABS: % Basophils 0.9 % (0-2); % Eosinophils 1.5 % (0-6); % Immature Granulocytes 0.4 % (0-0.5); % Lymphocytes 10.1 % (20.5-51.1); % Monocytes 7.6 % (1.7-9.3); % Neutrophils 79.5 % (42.2-75.2); Absolute Basophils 0.1 10^3/uL (0-0.2); Absolute Eosinophils 0.1 10^3/uL (0-0.7); Absolute Lymphocytes 0.7 10^3/uL (1.2-3.4); Absolute Monocytes 0.5 10^3/uL (0.1-0.6); Absolute Neutrophils 5.4 10^3/uL (1.4-6.5); Hematocrit 37.4 % (37.0-47.0); Hemoglobin 11.5 g/dL (12.0-16.0); Mean Corp Hgb Conc. 30.7 g/dL (33.0-37.0); Mean Corpuscular Hgb 29.8 pg (27.0-31.0); Mean Corpuscular Volume 96.9 fL (81.0-99.0); Mean Platelet Volume 9.3 fL (7.4-10.4); Nucleated Red Blood Cells % 0 %; Platelet Count 181 10^3/uL (130-400); Red Blood Cell Count 3.86 10^6/uL (4.20-5.40); Red Cell Dist. Width 14.4 % (11.5-14.5); White Blood Cell Count 6.8 10^3/uL (4.8-10.8)
[2024-01-27 07:06] LABS: APTT 75.2 Sec (23.4-35.0)
[2024-01-27 07:12] LABS: Vancomycin Random 13.5 ug/ml
[2024-01-27] MEDS: SPIRIVA RESPIMAT 2.5 MCG 2 PUFF INH (07:37)
[2024-01-27] MEDS: SYMBICORT 160/4.5 MCG INHALER 2 PUFF INH ×2 (07:37→19:25)
[2024-01-27 07:59] LABS: Blood Urea Nitrogen 29 mg/dl (7-17); Calcium 8.6 mg/dl (8.4-10.2); Carbon Dioxide 12 mmol/L (22-30); Chloride 113 mmol/L (98-107); Estimated Creatinine Clearance 22 ml/min; Glucose 95 mg/dl (70-99); Magnesium 2.4 mg/dl (1.6-2.3); Potassium 5.9 mmol/L (3.5-5.1); Sodium 141 mmol/L (135-145); eGFR 35.23
[2024-01-27] MEDS: ProAmatine 5 MG PO ×3 (08:03→17:15)
[2024-01-27] MEDS: DESENEX/MITRAZOL/ZEASORB 1 APPLIC TOPICAL ×2 (08:03→19:36)
[2024-01-27] MEDS: TYLENOL 325 MG PO ×2 (08:03→19:35)
--- NOTE | 2024-01-27 08:41 | CON.CAR ---
Addendum entered and electronically signed by Casper Arriola MD 01/27/24 11:51:
78 yo female with PMH of paroxysmal A fib on eliquis, severe MR (anatomy not amenable to mitraclip), chronic HFPEF, COPD admitting with non-healing toe wounds, sepsis. We are consulted for A fib with RVR. Asymptomatic with episodes and back in
sinus. Exam with RRR, III// systolic murmur at apex, trace LE edema. Cr 1.5. Tele: A fib/RVR-->NSR.
A fib with RVR. Likely triggered by infectious process. Back in sinus. Not on metoprolol or diltiazem due to hypotension. If recurs, we can use short term amiodarone. Check echo.
Her entresto, aldactone, lasix are on hold due to LARA. Eventual plans for angiogram byvascular once Cr improved. She may need PAD intervention.
Original Note:
Consultation
Consultation Request
Date/Time Consultation Requested: 01/27/24727
Date/Time Consultation Performed: 01/27/24 0841
Requesting Provider: Dr. Dominguez
Performing Provider: Brooke STOCKTON for Dr. Arriola
Reason for Consultation: AFIB with RVR, hypotension
Medical History
-
Chief Complaint: toe infection
History of Present Illness:
78 y/o female with severe lung disease/COPD on 3L NC, chronic HFpEF, severe MR (per Dr. Bee OP note, would not be easily amenable to MitraClip), pulmonary hypertension, PAF on Eliquis, PAD, and mild CAD who is here for evaluation of toe infection.
Briefly, she stubbed her left toe about 1 month ago. Toe nails fell off and wound has not been healing and has become painful. Her coverstitch binder recommended inpatient management. She is on ABX. She is being seen by podiatry and vascular and when kidney
function will allow (LARA noted and nephrology on case) is going to have CTA. We are consulted for AFIB with RVR. Currently, she is in SR. Overnight, for about 3 hours, she had AFIB with RVR. She did not feel it. She was given 2.5 mg IV metoprolol.
She is currently in SR. She has been taking her Eliquis, but is now on heparin. Of note, she has been hypotensive requiring fluids this admit. Midodrine was also started. Her weight is down and she reports she has not had an appetite.
Past Medical History
Past Medical History: Arrhythmias, CAD, CHF, COPD, Valvular Disease and Other (as above)
Social History
Tobacco: Former Smoker
Family History
Family History: Reviewed & Not Pertinent
Allergies / Home Medications
Allergy/AdvReac Type Severity Reaction Status Date / Time
No Known Allergies Allergy Verified 11/30/22 16:01
�Medication �Instructions �Recorded �Confirmed �Type
fluticasone fur. 200 mcg-umeclid 1 inh inhalation R DAILY 07/23/21 01/25/24 History
62.5 mcg-vilant 25 mcg Lung/breathing issues ##0
inhalat.powder (Trelegy Ellipta)
acetaminophen 325 mg tablet 325 mg PO BID Pain 01/25/24 01/25/24 History
(Tylenol)
dapagliflozin propanediol 10 mg 10 mg PO DAILY Diabetes 01/25/24 01/25/24 History
tablet (Farxiga)
sacubitril 24 mg-valsartan 26 mg 1 tab PO BID Heart 01/25/24 01/25/24 History
tablet (Entresto) Disease/Condition
spironolactone 25 mg tablet 25 mg PO DAILY Fluid 01/25/24 01/25/24 History
Retention/Swelling
apixaban 5 mg tablet (Eliquis) 5 mg PO BID Blood Clot 01/26/24 01/25/24 History
Prevention/Tx
furosemide 40 mg tablet 40 mg PO DAILY Fluid 01/26/24 01/25/24 History
Retention/Swelling
Review of Systems
-
History Source: Patient
All other systems: Negative unless noted
Constitutional: Other (poor appetite)
Musculoskeletal: Other (toe pain, wound)
Physical Exam
Vital Signs
Temp Pulse Resp BP Pulse Ox
97.5 F 83 18 85/47 92
01/27/24 07:00 01/27/24 08:03 01/27/24 07:42 01/27/24 08:03 01/27/24 08:22
Lab Results
01/27/24 06:38
01/27/24 06:38
Physical Exam
General: Well Developed and No Apparent Distress
HEENT: Normocephalic and Anicteric
Respiratory: Clear, Non Labored Respirations and Other (on O2 by NC)
Musculoskeletal: No Edema
Neuro: Awake and Alert
Psych: Calm
Impression / Plan
-
Toe infection:
-podiatry and vascular following
-on IV ABX
-plan is for CTA when renal function will allow
PAD:
-vascular on board as above
Hypotension:
-s/p IV fluids, also on midodrine now
-Entresto, spironolactone, and furosemide held
-update echo
PAF:
-now in SR, but about 3 hours of asymptomatic AFIB with RVR overnight- cannot use BB/CCB due to BP. Can use amiodarone in the short-term if AFIB recurs.
-on heparin drip (typically on Eliquis for NCICT3AMME score of 5 for age, female, CHF, PAD), which requires intensive monitoring- continue
HFpEF: chronic
-patient's weight is down from baseline
-Lasix, Entresto, Aldactone on hold
-monitor volume status
Mitral regurgitation: severe
-not good intervention (mitraclip) candidate per OP notes
COPD:
-severe per OP chart
-on 3L NC
LARA, hyperkalemia:
-nephro following
-meds held as above
Data Reviewed
-
EKG: Tracing Personally Visualized and interpreted (AFIB with RVR 125 BPM)
Radiology: Report Reviewed by me (No radiographic evidence for acute osteomyelitis.)
Medical Tests (Nuc Med, Echo etc): Report Reviewed by me (04/08/22 echo: EF 55-60%. Severe eccentric mitral regurgitation. Dilated, hypokinetic RV. Moderate tricuspid regurgitation. Pulmonary hypertension. Estimated pulmonary artery pressure of
45-50nnHg .)
Labs: Labs Reviewed by me
--- NOTE | 2024-01-27 08:50 | W.PN.HOSP.TC ---
Addendum entered and electronically signed by Norberto Dominguez MD 01/27/24 15:11:
Updated daughter over the phone today as well.
Original Note:
Today's Communication/Plan
-
Heparin drip. Antibiotics. IV fluids.
Assessment / Plan
Assessment / Plan
Physical exam:
General: Acutely ill
HEENT: Normo-Cephalic, dry mucous membranes and Atraumatic
Respiratory: Decreased breath sounds bilateral, no wheezes or crackles.
Cardiac: S1/S2 and Regular Rhythm; systolic murmur and no rub
GI: Soft, Non Tender, Non Distended and Normal Bowel Sounds; No Organomegaly
Rectal: Deferred by Provider
Musculoskeletal: No Clubbing, No Cyanosis and No Edema
Skin: Other- nonpalpable pulses in both lower extremities (left first to third toe redness, tenderness and gangrene under toenails ); No Rash
Neuro: Nonfocal/grossly intact
A/P:
Limb threatening ischemia of left lower extremity associated with dry gangrene toes 1 2 and 3 of left foot and underlying PVD:
Continue IV antibiotics, Zosyn and vancomycin
Continue heparin drip
Pain control with Dilaudid as needed and as tolerated
Plan for CTA with runoff by vascular but on hold due to LARA
Appreciated vascular surgery consult
Appreciated podiatry consult
Discussed with over the phone today on 01/26
Prognosis guarded
Hypotension:
Given IV fluids since yesterday with couple of boluses and also some midodrine.
Continue IV fluids and change according to acidosis and LARA
Plan for echocardiogram
Checking cortisol levels
Holding antihypertensives and diuretics due to hypotension and LARA
Anion gap metabolic acidosis:
Change IV fluids to bicarb drip
Monitor acidosis closely
Continue cardiac monitoring
Hyperkalemia:
IV bicarb stat
IV calcium gluconate stat
Lokelma 10 g p.o. stat
Continue cardiac monitoring
Recheck electrolytes later this afternoon
Paroxysmal atrial fibrillation:
Given Lopressor IV x 1 overnight
Currently normal sinus rhythm
Continue heparin drip
Cardiology consulted
Cardiology recommended if A-fib recurs to rather use amiodarone
LARA:
Holding Entresto and spironolactone and Lasix
Nephrology consult appreciated
On IV fluids
Chronic HFpEF:
If anything hypovolemic at present
Holding diuretics and GDMT due to hypotension and LARA
Monitor volume status closely
Severe mitral regurgitation:
Cardiology on board-Per cardio not easily amenable to MitraClip
Chronic hypoxic respiratory failure on home oxygen with advanced COPD:
Continue home oxygen at 3 L
Continue Spiriva and Symbicort
Monitor respiratory status closely but at the moment stable
Total time spent on today's encounter was 52 minutes which included time spent in counseling the patient/family regarding diagnosis and treatment plan as listed above, goals of care, and symptom management. Case was discussed with nursing staff,
specialists, and care coordinators/case management. All labs and imaging personally reviewed by me. Remainder the time spent in detailed review of previous records, lab data, imaging, and other medical provider documentation.
Anticipated Discharge: > 48 hours
Subjective/Interval History
-
Date of Service: January 27, 2024
Noticed overnight events. Patient with decreased appetite but denies any chest pain or shortness of breath at the moment. On 3 L of oxygen. Hypotensive.
Objective Data
-
Labs:
Laboratory Results
01/26/24 01/27/24 01/27/24
21:02 00:27 01:28
WBC 7.0
Hgb 10.7 L
Hct 34.2 L
Plt Count 202 D
APTT 101.6 H
Sodium 140
Potassium 4.9 D
Chloride 109 H
Carbon Dioxide 19 L
BUN 29 H
Creatinine 1.4 H
Glucose 127 H
Calcium 7.9 L D
01/27/24 01/27/24
06:37 06:38
WBC 6.8
Hgb 11.5 L
Hct 37.4
Plt Count 181
APTT 75.2 H
Sodium 141
Potassium 5.9 H
Chloride 113 H
Carbon Dioxide 12 L*
BUN 29 H
Creatinine 1.5 H
Glucose 95
Calcium 8.6
Vital Signs:
Vital Signs
Temp Pulse Resp BP Pulse Ox
97.5 F 83 18 85/47 92
01/27/24 07:00 01/27/24 08:03 01/27/24 07:42 01/27/24 08:03 01/27/24 08:22
I&O
01/26/24 01/27/24 01/28/24
06:59 06:59 06:59
Intake Total 300 / 300 2690 / 2690
Output Total 150 / 150 100 / 100
Balance 150 / 150 2590 / 2590
--- NOTE | 2024-01-27 08:57 | W.PN.NEPH.PH ---
Today's Communication / Plan
-
treat K
Assessment/Plan
-
IMP:
Infected left 1st-3rd toes with gangrene concern for underlying vascular insufficiency
History of peripheral vascular disease
Hypotension
LARA with CKD baseline cr 1.1 in 02/2023
Mild A gap met acidosis
Chronic hypoxemic respiratory failure, COPD
chronic HFpEF
Paroxysmal atrial fibrillation
Pulmonary hypertension
COPD on 3 L baseline
Essential hypertension
Plan;
follow BMP
no Agram for now
treat K medically
bicarb IVF
midodrine
echo
await cortisol
off entresto/spironolactone
-
-
Date of Service: January 27, 2024
CC / HPI / ROS
-
Chief Complaint:
LARA
History of Present Illness:
LARA/Cr up to 1.5
hypotense
metabolic acidosis worse 12
K up to 5.9
Review of Systems:
no CP/SOB
no appetite
Labs
-
Labs:
WBC 6.8 10^3/uL (4.8-10.8) 01/27/24 06:38
RBC 3.86 10^6/uL (4.20-5.40) L 01/27/24 06:38
Hgb 11.5 g/dL (12.0-16.0) L 01/27/24 06:38
Hct 37.4 % (37.0-47.0) 01/27/24 06:38
Plt Count 181 10^3/uL (130-400) 01/27/24 06:38
Sodium 141 mmol/L (135-145) 01/27/24 06:38
Potassium 5.9 mmol/L (3.5-5.1) H 01/27/24 06:38
Chloride 113 mmol/L (98-107) H 01/27/24 06:38
Carbon Dioxide 12 mmol/L (22-30) L* 01/27/24 06:38
BUN 29 mg/dl (7-17) H 01/27/24 06:38
Creatinine 1.5 mg/dL (0.6-1.0) H 01/27/24 06:38
eGFR 35.23 01/27/24 06:38
Glucose 95 mg/dl (70-99) 01/27/24 06:38
Calcium 8.6 mg/dl (8.4-10.2) 01/27/24 06:38
Albumin 3.8 g/dl (3.5-5.0) 01/26/24 05:28
Physical Exam
-
Vital Signs:
Vital Signs
Temp Pulse Resp BP Pulse Ox
97.5 F 83 18 85/47 92
01/27/24 07:00 01/27/24 08:03 01/27/24 07:42 01/27/24 08:03 01/27/24 08:22
Cardiovascular:: Regular rate and rhythm
Respiratory:: Bilateral: CTA
Lung Excursion:: Normal
Abdomen:: Nontender and Soft
Bowel Sounds:: Normal
Extremity Edema:: None: Bilateral:
--- NOTE | 2024-01-27 09:11 | PHA.VAN.FU ---
Vancomycin Assessment / Plan
- Assessment
Renal Function: Stable
WBC's are: WNL
In the past 24 hrs, patient has been: Afebrile
Concomitant Antimicrobials: piperacillin/tazobactam
- Assessment - Therapeutic Drug Monitoring
Random Level: 13.5 - drawn ~19H after previous dose of 500mg
- Dosing Plan
Dosing by Level: Re-dose today (Vanc 500mg)
- Monitoring Plan
Random Level: 01/27 06
- Follow Up
Pharmacy will continue to follow.
Vancomycin Follow UP
- -
Patient Age: 78
Patient Sex: Female
Vancomycin Day #: 3
Indication: Skin And Soft Tissue
Requesting Provider: Dr. Adamson
Pertinent Antimicrobial Allergies:
NKDA
Height / Weight:
Height 5 ft 6 in
Actual Weight 45.6 kg
IBW in k
Pertinent Past Medical History: BMI ~16, COPD (home O2)
- Vital Signs / Lab Results
Temp Pulse Resp BP Pulse Ox
97.5 F 83 18 85/47 92
01/27/24 07:00 01/27/24 08:03 01/27/24 07:42 01/27/24 08:03 01/27/24 08:22
Lab Results - Hematology
01/25/24 01/25/24 01/26/24
20:20 23:29 05:28
WBC 8.0 7.1 6.4
01/26/24 01/27/24 01/27/24
19:27 01:28 06:38
WBC 5.4 7.0 6.8
Lab Results - Chemistry
01/25/24 01/26/24 01/26/24
20:20 05:28 19:27
BUN 38 H 35 H 21 H
Creatinine 1.4 H 1.4 H 0.9
Estimated Creat Clear
Albumin 4.0 3.8
01/26/24 01/27/24
21:02 06:38
BUN 29 H 29 H
Creatinine 1.4 H 1.5 H
Estimated Creat Clear
Albumin
01/26/24
19:27
Lactic Acid 1.3
Lab Results - Urine
01/26/24
16:12
Urine Nitrite Negative
Ur Leukocyte Esterase Negative
Therapeutic Drug Monitoring
Random Vancomycin 13.5 ug/ml 01/27/24 06:38
[2024-01-27] MEDS: CALCIUM GLUCONATE 1000 MG IV (09:48)
[2024-01-27] MEDS: SODIUM BICARBONATE 1075 MEQ IV ×2 (09:51→22:00)
[2024-01-27] MEDS: SODIUM BICARBONATE 50 MEQ IV (09:52)
[2024-01-27] MEDS: LOKELMA 10 GRAM PO (09:54)
[2024-01-27] MEDS: VANCOCIN HCL 500 MG 100 IV (11:56)
--- NOTE | 2024-01-27 13:42 | PTCARENOTE ---
Gold colored anklet and sunflower earrings removed from patient and given to to bring home.
[2024-01-27] MEDS: LEVOPHED 250 IV (13:44)
[2024-01-27] MEDS: HEPARIN 25000 UNITS/250 ML IV (13:50)
[2024-01-27 14:01] LABS: Blood Urea Nitrogen 29 mg/dl (7-17); Calcium 8.8 mg/dl (8.4-10.2); Carbon Dioxide 17 mmol/L (22-30); Chloride 110 mmol/L (98-107); Estimated Creatinine Clearance 22 ml/min; Glucose 154 mg/dl (70-99); Sodium 142 mmol/L (135-145); eGFR 35.23
--- NOTE | 2024-01-27 14:09 | PTCARENOTE ---
Patients MAP 60, discussed with Dr. Dominguez. IV Levophed initiated to keep MAP >65. Blood pressur is now 88/66, MAP 73.
--- NOTE | 2024-01-27 14:42 | PTCARENOTE ---
Patients dorsalis pedis pulses not detectable with doppler. Notified Dr. Dominguez and vascular surgery. Patient is on Levophed at this time. Discussed plan of care with and daughter.
--- NOTE | 2024-01-27 15:46 | CON.ID ---
Consultation
-
Date/Time Consultation Requested: 01/27/2024 1313
Date/Time Consultation Performed: 01/27/2024 1540
Requesting Provider: Dr. Dominguez
Performing Provider: Dr. Mancuso
Reason for Consultation: Toe infection
Chief Complaint / Past History
History of Present Illness
Haylee Teague is a 78-year-old female being evaluated at the request of Dr. Dominguez in regards to left foot cellulitis. History is obtained from chart review, along with patient interview.
The patient has a significant past medical history of PAD and CAD. According to reviewed history, the patient reported that she had stubbed her left great toe approximately 1 month prior. She has been managing this at home with Epson salts soaks,
but at some point in time the nail came off, and since then the toe has become increasingly red, swollen and painful. She was seen by podiatry on 01/24 in the outpatient setting and was advised to come to the hospital for further evaluation. At
that point in time she denied any numbness or tingling and had not complained of any fever or chills.
She has been started on empiric antibiotics (Zosyn, vancomycin) and Infectious Diseases is asked to comment upon further antimicrobial management.
At this point in time, I was unable to elicit significant history from the patient secondary to somnolence. She denies current pain, although notes discomfort with any touch to the feet.
Past History
Additional Past Medical History:
CAD
CHF
COPD
HTN
Spontaneous pneumothorax
Pulmonary hypertension
Tricuspid regurgitation
Mitral regurgitation
Additional Past Surgical History:
D&C
Uterine cauterization
Cataract surgery
Allergy History:
No Known Allergies Allergy (Verified 11/30/22 16:01)
Medications Reviewed: Yes
Current Antibiotics:
Vancomycin (dosed per pharmacy)
Zosyn 2.25 g IV every 6 hours
Social History
Tobacco: Former Smoker
Alcohol: None
Drug: None
Personal:
Living: With Family
Employment: Retired
Family History
Family History: Unable to Obtain
Review of Systems
Vital Signs
Temp Pulse Resp BP Pulse Ox
97.5 F 86 21 85/52 86
01/27/24 11:29 01/27/24 14:45 01/27/24 14:45 01/27/24 14:45 01/27/24 14:10
Physical Exam
Physical Exam
Constitutional: No Acute Distress, Comfortable, Chronically Ill, Non-toxic and Cachetic (Markedly frail in appearance)
Eyes: No Conjunctival Hemorrhage and Sclera Anicteric
Oral: No Thrush and No Ulcers
Cardiovascular: Regular Rate, S1/S2 and Murmur; Negative S3/S4
Pulmonary: Clear and Non Labored; Negative Wheezes or Rales
Gastrointestinal: Soft, Non Tender, Non Distended, Normal Bowel Sounds, No Rebound and No Guarding
Extremities: Cyanosis (B/L toes/feet. Toes are cold (left foot > right foot)); Negative Edema or Venous Insufficiency
Skin: Negative Rash or Jaundice
Neurological: Other (arousable; responsive to voice.)
Psychological: Calm
Lab / Diagnostic Study Results
01/27/24 06:38
01/27/24 13:32
Abs Immat Gran (auto) 0.0 10^3/uL (0-0.05) 01/27/24 06:38
Absolute Neuts (auto) 5.4 10^3/uL (1.4-6.5) 01/27/24 06:38
Absolute Lymphs (auto) 0.7 10^3/uL (1.2-3.4) L 01/27/24 06:38
Absolute Monos (auto) 0.5 10^3/uL (0.1-0.6) 01/27/24 06:38
Absolute Basos (auto) 0.1 10^3/uL (0-0.2) 01/27/24 06:38
Immature Gran % 0.4 % (0-0.5) 01/27/24 06:38
Neutrophils % 79.5 % (42.2-75.2) H 01/27/24 06:38
Lymphocytes % 10.1 % (20.5-51.1) L 01/27/24 06:38
Monocytes % 7.6 % (1.7-9.3) 01/27/24 06:38
Eosinophils % 1.5 % (0-6) 01/27/24 06:38
Basophils % 0.9 % (0-2) 01/27/24 06:38
Lactic Acid 1.3 mmol/L (0.7-2.0) 01/26/24 19:27
C-Reactive Protein 34.40 mg/L (0.0-10.00) H 01/25/24 20:20
Microbiology Results
Imaging:
01/26/2024 Arterial ultrasound lower extremity with ARLETH: Occlusion of bilateral distal external iliac arteries. Reconstitution of both common femoral arteries via collateral circulation. Associated diffuse dampening of bilateral lower extremity
waveforms. No occlusion or stenosis identified within the lower extremity arteries. Unobtainable ankle brachial indices and toe brachial indices.
01/25/2024 X-ray left foot: No acute fracture or dislocation. No aggressive osseous destruction. Joint spaces are maintained. Chronic remodeling of the head/neck of the fifth proximal phalanx. Soft tissues are unremarkable.
Assessment / Plan
Critical limb ischemia lower extremities
LARA
Suspected cellulitis left toes
CAD
CHF
COPD
HTN
Spontaneous pneumothorax
Pulmonary hypertension
Tricuspid regurgitation
Mitral regurgitation
Recommendations:
Given the purple discoloration of the toes, suspect the majority of issue right now is tissue ischemia rather than gangrene.
Discontinue further vancomycin.
Continue with Zosyn for the present.
Further workup per Vascular Surgery
Monitor white count temperature curve.
Continue with local care to the toes. At present, no significant drainage noted.
--- NOTE | 2024-01-27 16:07 | W.PN.VS ---
Today's Communication / Plan
-
See below.
Assessment/Plan
-
Assessment: 78-year-old female with multiple advanced medical comorbidities presents with chronic limb threatening ischemia of the left foot with ischemic rest pain and tissue loss, with suspected inflow disease given not palpable left femoral pulse
Plan:
Recommendation for complete evaluation his CT aorta with runoff, unfortunately cannot obtain due to LARA
Updated family at bedside
Continue anticoagulation infusion of heparin, suspect pulses are not diminished due to peripheral arterial disease and new requirement of Levophed for blood pressure support causing vasoconstriction
Recommend goals of care discussion
Reviewed HPI, physical exam, and plan with attending Dr. Elmer Sy who agrees
Subjective Data
-
Date of Service: January 27, 2024
Patient seen and examined at bedside, now with worsening confusion, oriented to self. Appears lethargic, requiring Levophed for hypotension.
Objective Data
-
Vital Signs
Temp Pulse Resp BP Pulse Ox
97.3 F 86 21 85/52 86
01/27/24 15:00 01/27/24 14:45 01/27/24 14:45 01/27/24 14:45 01/27/24 14:10
Intake and Output
01/26/24 01/27/24 01/28/24
06:59 06:59 06:59
Intake Total 300 / 300 2690 / 2690
Output Total 150 / 150 100 / 100
Balance 150 / 150 2590 / 2590
Intake:
Oral fluids 340 / 340
IV fluids (Total) 250 / 250 2150 / 2150
IV piggybacks 50 / 50 200 / 200
Output:
Urine, Voided 150 / 150 100 / 100
Other:
How many times incontinent 1
SATURATED amount urine
Lab Results
01/27/24 06:38
01/27/24 13:32
Calcium 8.8 mg/dl (8.4-10.2) 01/27/24 13:32
Magnesium 2.4 mg/dl (1.6-2.3) H 01/27/24 06:38
Total Bilirubin 1.4 mg/dl (0.2-1.3) H 01/26/24 05:28
AST 30 U/L (14-36) 01/26/24 05:28
ALT 12 U/L (0-35) 01/26/24 05:28
Alkaline Phosphatase 69 U/L (38-126) 01/26/24 05:28
Total Protein 7.0 g/dl (6.3-8.2) 01/26/24 05:28
Albumin 3.8 g/dl (3.5-5.0) 01/26/24 05:28
Physical Exam
-
Resting in bed comfortably, lethargic but arousable
No tachycardia
On nasal cannula for supplemental oxygen
ABD flat
Right foot warm, left foot cooler in comparison to right, bilateral cap refill less than 3 seconds, able to obtain right PT Doppler signal, no Doppler signal present at DP or PT
Heparin infusing
[2024-01-27 22:02] LABS: Cortisol, Random 23.8 ug/dl; TSH Reflex To Free T4 1.76 uIU/ml (0.47-4.68)
[2024-01-28] VITALS (62 sets, daily range): BP systolic 62–132; BP diastolic 37–92
--- NOTE | 2024-01-28 01:10 | PTCARENOTE ---
Pt disoriented to time. SR on panel monitor. Levo gtt titrated per protocol, see worklist documentation. Heparin gtt maintained, see worklist documentation. Pt had episode of incontinence of bowel and bladder, hygiene care performed. Bed alarm in
place for patient safety.
[2024-01-28] MEDS: ZOSYN 50 IV ×4 (02:06→19:40)
[2024-01-28 06:36] LABS: APTT 83.6 Sec (23.4-35.0)
[2024-01-28 06:38] LABS: % Eosinophils 2.9 % (0-6); % Immature Granulocytes 0.4 % (0-0.5); % Lymphocytes 11.8 % (20.5-51.1); % Monocytes 8.7 % (1.7-9.3); % Neutrophils 75.2 % (42.2-75.2); Absolute Basophils 0.1 10^3/uL (0-0.2); Absolute Eosinophils 0.3 10^3/uL (0-0.7); Absolute Lymphocytes 1.1 10^3/uL (1.2-3.4); Absolute Monocytes 0.8 10^3/uL (0.1-0.6); Absolute Neutrophils 7.3 10^3/uL (1.4-6.5); Hematocrit 37.4 % (37.0-47.0); Hemoglobin 11.5 g/dL (12.0-16.0); Mean Corp Hgb Conc. 30.7 g/dL (33.0-37.0); Mean Corpuscular Hgb 29.6 pg (27.0-31.0); Mean Corpuscular Volume 96.4 fL (81.0-99.0); Mean Platelet Volume 9.3 fL (7.4-10.4); Nucleated Red Blood Cells % 0 %; Platelet Count 216 10^3/uL (130-400); Red Blood Cell Count 3.88 10^6/uL (4.20-5.40); Red Cell Dist. Width 14.4 % (11.5-14.5); White Blood Cell Count 9.7 10^3/uL (4.8-10.8)
[2024-01-28 06:56] LABS: Blood Urea Nitrogen 29 mg/dl (7-17); Calcium 8.4 mg/dl (8.4-10.2); Carbon Dioxide 17 mmol/L (22-30); Chloride 108 mmol/L (98-107); Estimated Creatinine Clearance 22 ml/min; Glucose 124 mg/dl (70-99); Potassium 4.9 mmol/L (3.5-5.1); Sodium 142 mmol/L (135-145); eGFR 35.23
[2024-01-28] MEDS: SYMBICORT 160/4.5 MCG INHALER 2 PUFF INH ×2 (07:32→19:59)
[2024-01-28] MEDS: SPIRIVA RESPIMAT 2.5 MCG 2 PUFF INH (07:32)
[2024-01-28] MEDS: DESENEX/MITRAZOL/ZEASORB 1 APPLIC TOPICAL ×2 (08:30→19:40)
[2024-01-28] MEDS: ProAmatine 5 MG PO (08:30)
[2024-01-28] MEDS: TYLENOL 325 MG PO ×2 (08:32→19:40)
--- NOTE | 2024-01-28 08:34 | W.PN.VS ---
Today's Communication / Plan
-
d/w Dr Sy
Assessment/Plan
-
Assessment: 78-year-old female with multiple advanced medical comorbidities presents with chronic limb threatening ischemia of the left foot with ischemic rest pain and tissue loss, with suspected inflow disease given not palpable left femoral pulse
Plan:
Recommendation for complete evaluation his CT aorta with runoff, unfortunately cannot obtain due to LARA, Creatinine still 1.5 today.
Continue anticoagulation infusion of heparin, suspect pulses are not diminished due to peripheral arterial disease and new requirement of Levophed for blood pressure support causing vasoconstriction
Recommend goals of care discussion
Subjective Data
-
Date of Service: January 28, 2024
Pt seen at bedside this am. No events overnight, remains on pressors.
Objective Data
-
Vital Signs
Temp Pulse Resp BP Pulse Ox
97.4 F 102 18 116/70 95
01/28/24 08:09 01/28/24 07:36 01/28/24 07:36 01/28/24 06:30 01/28/24 07:36
Intake and Output
01/27/24 01/28/24 01/29/24
06:59 06:59 06:59
Intake Total 2690 / 2690 2360 / 2360
Output Total 100 / 100
Balance 2590 / 2590 2360 / 2360
Intake:
Oral fluids 340 / 340 120 / 120
IV fluids (Total) 2150 / 2150 2040 / 2040
IV piggybacks 200 / 200 200 / 200
Output:
Urine, Voided 100 / 100
Other:
How many times incontinent 1 1 1
SATURATED amount urine
Lab Results
01/28/24 06:11
01/28/24 06:11
Calcium 8.4 mg/dl (8.4-10.2) 01/28/24 06:11
Magnesium 2.4 mg/dl (1.6-2.3) H 01/27/24 06:38
Total Bilirubin 1.4 mg/dl (0.2-1.3) H 01/26/24 05:28
AST 30 U/L (14-36) 01/26/24 05:28
ALT 12 U/L (0-35) 01/26/24 05:28
Alkaline Phosphatase 69 U/L (38-126) 01/26/24 05:28
Total Protein 7.0 g/dl (6.3-8.2) 01/26/24 05:28
Albumin 3.8 g/dl (3.5-5.0) 01/26/24 05:28
Physical Exam
-
Resting in bed comfortably, alert
No tachycardia
On nasal cannula for supplemental oxygen
ABD flat
BL feet warm, toes dusky BL, good cap refill at the heels BL- on pressors
Heparin infusing
[2024-01-28] MEDS: FLUSH (NSS) 1 FLUSH IV (08:36)
[2024-01-28] MEDS: LEVOPHED 250 IV (08:40)
--- NOTE | 2024-01-28 08:41 | W.PN.CD ---
Today's Communication / Plan
-
CV stable at present
Impression / Plan
-
Toe infection/PAD:
-podiatry and vascular following
-on IV ABX
-plan is for CTA when renal function will allow
Hypotension:
-s/p IV fluids, also on midodrine now
-Entresto, spironolactone, and furosemide held
-Hold all hypertension meds. She needs some perfusion pressure to perfuse LLE
PAF:
-Has hx PAF by report
- I reviewed all telem and ECGs here and I see episodes of MAT but not AF during this hospital stay
-on heparin drip (typically on Eliquis for [id number] score of 5 for age, female, CHF, PAD), which requires intensive monitoring- continue
HFpEF: chronic
-patient's weight is down from baseline
-Lasix, Entresto, Aldactone on hold
-monitor volume status
Mitral regurgitation: severe
-not good intervention (mitraclip) candidate per OP notes
COPD:
-severe per OP chart
-on 3L NC
LARA, hyperkalemia:
- cr 03/13, K 4.9 now
-nephro following
-meds held as above
Physical Exam
Vital Signs/Labs
Vital Signs
Temp Pulse Resp BP Pulse Ox
97.4 F 102 18 116/70 95
01/28/24 08:09 01/28/24 07:36 01/28/24 07:36 01/28/24 06:30 01/28/24 07:36
01/28/24 06:11
01/28/24 06:11
APTT 83.6 Sec (23.4-35.0) H 01/28/24 06:11
Magnesium 2.4 mg/dl (1.6-2.3) H 01/27/24 06:38
Physical Exam
Constitutional: No acute distress
Cardiovascular: Rhythm & rate is regular and Systolic murmur present (2-3/6 MR)
Respiratory: Respiratory effort normal and Lungs clear to auscul.
GI: Flat
Neuro/Psych: Motor deficits absent
Other: Other (L foot slightly cooler than R foot)
Data Reviewed
-
Date of Service: January 28, 2024
--- NOTE | 2024-01-28 09:13 | W.PN.ID1 ---
Date of Service
Date of Service: January 28, 2024
Today's Communication
Continue Zosyn for today.
Assessment / Plan
Critical limb ischemia lower extremities
LARA
Suspected cellulitis left toes
CAD
CHF
COPD
HTN
Spontaneous pneumothorax
Pulmonary hypertension
Tricuspid regurgitation
Mitral regurgitation
Recommendations:
Given the purple discoloration of the toes, suspect the majority of issue right now is tissue ischemia rather than gangrene.
Continue with Zosyn for the present.
Further workup per Vascular Surgery
Monitor white count temperature curve.
Continue with local care to the toes. At present, no significant drainage or purulence noted.
Chief Complaint
-: Cellulitis
Subjective / Review of Systems
Patient seen and examined. Remains on pressor support at this time.
Review of Systems: No Fever
Vital Signs / Physical Exam
Vital Signs
Vital Signs
Temp Pulse Resp BP Pulse Ox
97.4 F 100 24 99/64 100
01/28/24 08:09 01/28/24 08:31 01/28/24 08:31 01/28/24 08:31 01/28/24 08:00
Physical Exam
Constitutional: Comfortable, Chronically Ill and Cachetic
Head: Normocephalic
Eyes: No Conjunctival Hemorrhage and Sclera Anicteric
Cardiovascular: S1/S2 and Murmur; Negative S3/S4
Pulmonary: Non Labored
Gastrointestinal: Soft and Non Tender
Extremities: Other (Bilateral feet with evidence of cyanosis of the toes and distal foot area. Toes noted to be cool-cold, with mottling. Significant tenderness with even light touch.)
Neurological: Awake and Alert
Psychological: Calm
Objective Data
Lab Data
Lab Results
11/21/24 06:11
01/28/24 06:11
APTT 83.6 Sec (23.4-35.0) H 01/28/24 06:11
Estimated Creat Clear 22 ml/min 01/28/24 06:11
Lactic Acid 1.3 mmol/L (0.7-2.0) 01/26/24 19:27
Total Bilirubin 1.4 mg/dl (0.2-1.3) H 01/26/24 05:28
AST 30 U/L (14-36) 01/26/24 05:28
ALT 12 U/L (0-35) 01/26/24 05:28
Alkaline Phosphatase 69 U/L (38-126) 01/26/24 05:28
C-Reactive Protein 34.40 mg/L (0.0-10.00) H 01/25/24 20:20
Most recent labs reviewed.
Imaging:
01/26/2024 Arterial ultrasound lower extremity with ARLETH: Occlusion of bilateral distal external iliac arteries. Reconstitution of both common femoral arteries via collateral circulation. Associated diffuse dampening of bilateral lower extremity
waveforms. No occlusion or stenosis identified within the lower extremity arteries. Unobtainable ankle brachial indices and toe brachial indices.
01/25/2024 X-ray left foot: No acute fracture or dislocation. No aggressive osseous destruction. Joint spaces are maintained. Chronic remodeling of the head/neck of the fifth proximal phalanx. Soft tissues are unremarkable.
--- NOTE | 2024-01-28 09:21 | W.PN.HOSP.TC ---
Addendum entered and electronically signed by Norberto Dominguez MD 01/28/24 16:14:
Underweight
Original Note:
Today's Communication/Plan
-
IV heparin drip. Levophed. Zosyn.
Assessment / Plan
Assessment / Plan
Physical exam:
General: Acutely ill
HEENT: Normo-Cephalic, dry mucous membranes and Atraumatic
Respiratory: Decreased breath sounds bilateral, no wheezes or crackles.
Cardiac: S1/S2 and Regular Rhythm; systolic murmur and no rub
GI: Soft, Non Tender, Non Distended and Normal Bowel Sounds; No Organomegaly
Rectal: Deferred by Provider
Musculoskeletal: No Clubbing, No Cyanosis and No Edema
Skin: Other- nonpalpable pulses in both lower extremities (left first to third toe redness, tenderness and gangrene under toenails ); No Rash
Neuro: Nonfocal/grossly intact
A/P:
Limb threatening ischemia of left lower extremity associated with dry gangrene toes 1 2 and 3 of left foot and underlying PVD:
ID consulted and recommended continue IV Zosyn and discontinued vancomycin
Continue heparin drip
Pain control with Dilaudid as needed and as tolerated
Plan for CTA with runoff by vascular but on hold due to LARA
Appreciated vascular surgery consult
Appreciated podiatry consult
Discussed with daughter over the phone on 01/26 who was designated as spokesperson. I spoke with daughter again today on 01/27.
Prognosis guarded
Hypotension:
Still requiring pressors but low-dose of Levophed-wean as able also to decrease side effect of hypoperfusion due to vasoconstriction
Given IV fluids and boluses and also some midodrine.
I was planning on continue IV fluids but given volume overload IV fluids has been stopped and diuretics given by nephrology.
Plan for echocardiogram
Checking cortisol levels
Holding antihypertensives and diuretics due to hypotension and LARA
Anion gap metabolic acidosis:
Monitor acidosis
Continue cardiac monitoring
Hyperkalemia:
Resolved with treatment
Paroxysmal atrial fibrillation:
Given Lopressor IV prior
Currently normal sinus rhythm
Continue heparin drip
Cardiology consulted
Cardiology recommended if A-fib recurs to rather use amiodarone--> cardiology today feels that her episodes are multifocal atrial tachycardia rather than A-fib.
LARA:
Likely acute tubular necrosis
Holding Entresto and spironolactone and oral Lasix. IV Lasix given today.
Nephrology consult appreciated
Creatinine remains 1.5
Chronic HFpEF:
Given IV Lasix x 1.
Holding diuretics and GDMT due to hypotension and LARA
Monitor volume status closely
Severe mitral regurgitation:
Cardiology on board-Per cardio not easily amenable to MitraClip
Chronic hypoxic respiratory failure on home oxygen with advanced COPD:
Continue home oxygen at 3 L
Continue Spiriva and Symbicort
Monitor respiratory status closely but at the moment stable
Total time spent on today's encounter was 52 minutes which included time spent in counseling the patient/family regarding diagnosis and treatment plan as listed above, goals of care, and symptom management. Case was discussed with nursing staff,
specialists, and care coordinators/case management. All labs and imaging personally reviewed by me. Remainder the time spent in detailed review of previous records, lab data, imaging, and other medical provider documentation.
Anticipated Discharge: > 48 hours
Subjective/Interval History
-
Date of Service: January 28, 2024
Patient still hypotensive requiring pressors. Mild shortness of breath. Still having lower extremity pain. Afebrile
Objective Data
-
Labs:
Laboratory Results
01/28/24
06:11
WBC 9.7
Hgb 11.5 L
Hct 37.4
Plt Count 216
APTT 83.6 H
Sodium 142
Potassium 4.9
Chloride 108 H
Carbon Dioxide 17 L
BUN 29 H
Creatinine 1.5 H
Glucose 124 H
Calcium 8.4
Vital Signs:
Vital Signs
Temp Pulse Resp BP Pulse Ox
97.4 F 100 24 99/64 100
01/28/24 08:09 01/28/24 08:31 01/28/24 08:31 01/28/24 08:31 01/28/24 08:00
I&O
01/27/24 01/28/24 01/29/24
06:59 06:59 06:59
Intake Total 2690 / 2690 2360 / 2360
Output Total 100 / 100
Balance 2590 / 2590 2360 / 2360
[2024-01-28] MEDS: SODIUM BICARBONATE 1075 MEQ IV (10:33)
--- NOTE | 2024-01-28 11:44 | W.PN.NEPH.PH ---
Addendum entered and electronically signed by Kun Pagan MD 01/29/24 10:08:
[id number]
Original Note:
Today's Communication / Plan
-
lasix today
Assessment/Plan
-
IMP:
Infected left 1st-3rd toes with gangrene concern for underlying vascular insufficiency
History of peripheral vascular disease
Hypotension
LARA with CKD baseline cr 1.1 in 02/2023
Mild A gap met acidosis
Chronic hypoxemic respiratory failure, COPD
chronic HFpEF
Paroxysmal atrial fibrillation
Pulmonary hypertension
COPD on 3 L baseline
Essential hypertension
severe MR
Plan;
follow BMP
no Agram for now
midodrine
off entresto/spironolactone
echo with severe MR and flatten septum. can trial lasix today. cap IVF
-
-
Date of Service: January 28, 2024
CC / HPI / ROS
-
Chief Complaint:
LARA
History of Present Illness:
LARA/Cr up to 1.5 stable
hypotense still despite midodrine
metabolic acidosis 17
K down to 4.9
Review of Systems:
no CP/SOB
no appetite
Labs
-
Labs:
WBC 9.7 10^3/uL (4.8-10.8) 01/28/24 06:11
RBC 3.88 10^6/uL (4.20-5.40) L 01/28/24 06:11
Hgb 11.5 g/dL (12.0-16.0) L 01/28/24 06:11
Hct 37.4 % (37.0-47.0) 01/28/24 06:11
Plt Count 216 10^3/uL (130-400) 01/28/24 06:11
Sodium 142 mmol/L (135-145) 01/28/24 06:11
Potassium 4.9 mmol/L (3.5-5.1) 01/28/24 06:11
Chloride 108 mmol/L (98-107) H 01/28/24 06:11
Carbon Dioxide 17 mmol/L (22-30) L 01/28/24 06:11
BUN 29 mg/dl (7-17) H 01/28/24 06:11
Creatinine 1.5 mg/dL (0.6-1.0) H 01/28/24 06:11
eGFR 35.23 01/28/24 06:11
Glucose 124 mg/dl (70-99) H 01/28/24 06:11
Calcium 8.4 mg/dl (8.4-10.2) 01/28/24 06:11
Albumin 3.8 g/dl (3.5-5.0) 01/26/24 05:28
Physical Exam
-
Vital Signs:
Vital Signs
Temp Pulse Resp BP Pulse Ox
97.4 F 94 27 74/62 93
01/28/24 08:09 01/28/24 10:33 01/28/24 10:33 01/28/24 10:33 01/28/24 08:00
Cardiovascular:: Regular rate and rhythm
Respiratory:: Bilateral: Coarse
Lung Excursion:: Normal
Abdomen:: Nontender and Soft
Bowel Sounds:: Normal
Extremity Edema:: +1: Bilateral:
[2024-01-28] MEDS: LASIX 40 MG IV (12:23)
[2024-01-28] MEDS: ProAmatine 10 MG PO ×2 (12:24→17:08)
--- NOTE | 2024-01-28 15:41 | PN.CDI ---
CDI
- -
CDI:
Physician Documentation Request
Admit Date: 01/25/24 21:56
Dear Doctor Latasha,
Nephrology notes include a diagnosis of LARA with CKD.
eGFR
Laboratory Tests
02/13/23 01/25/24 01/26/24
11:11 20:20 19:27
eGFR 51.43 38.27 > 60.00
01/27/24 01/28/24
06:38 06:11
eGFR 35.23 35.23
Please clarify the patient's CKD:
Stages of Chronic Kidney Disease*
Level Description GFR
G1 Normal or High >90
G2 Mildly decreased 60-89
G3a Mildly to moderately decreased 45-59
G3b Moderately to severely decreased 30-44
G4 Severely decreased 15-29
G5 Kidney failure <15
Other
Use of terms such as suspected, likely, concern for, or probable (associated with a specific diagnosis that is being evaluated, monitored, or treated as if it exists) are acceptable and can be coded in the inpatient setting, when documented at the
time of discharge.
Thank you,
Monie Lino RN, BSN
CDI Specialist
tiger text
Please use your independent medical judgment in providing your response.
*Source: Kidney Disease: Improving Global Outcomes (KDIGO) 2012
--- NOTE | 2024-01-28 15:48 | PN.CDI ---
CDI
- -
CDI:
Physician Documentation Request
Admit Date: 01/25/24 21:56
Dear Doctor Angelica,
Clinical Indicators:
Height: 5 ft 6 in
Weight:100 lbs
01/26 note states '01/26 consult for poor po intake, Initial assessment due to BMI 16.2 (underweight)
If possible, please provide an associated diagnosis related to the abnormal BMI, such as:
BMI < or = to 19
Underweight
Weight Loss
Cachectic
Anorexia
- BMI is not significant
- Other
Use of terms such as suspected, likely, concern for, or probable (associated with a specific diagnosis that is being evaluated, monitored, or treated as if it exists) are acceptable and can be coded in the inpatient setting, when documented at the
time of discharge.
Thank you,
Monie Lino RN, BSN
CDI Specialist
tiger text
Please use your independent medical judgment in providing your response.
--- NOTE | 2024-01-28 19:40 | W.PN.POD ---
Today's Communication
Today's Communication
Left foot toes 1,2,3 presently stable dry gangrene.
Will consider to monitor.
Assessment / Plan
-
DM2
CLI LLE
Gangrene toes left foot- dry and uninfected
Subjective
Chief Complaint
pain left foot/toes
Subjective
Pt resting with c/o ongoing pain to her left foot
Objective
Temp Pulse Resp BP Pulse Ox
97.8 F 100 32 93/63 70
01/28/24 16:33 01/28/24 17:08 01/28/24 17:00 01/28/24 17:08 01/28/24 17:00
01/28/24 06:11
01/28/24 06:11
Vital Signs and Lab results were reviewed.
Review of Systems
Review of Systems
Review of Systems: No Fever, No Chills, No Nausea and No Diarrhea
Physical Exam
Physical Exam
General: Pain (Left foot) and Appears Chronically Ill
Musculoskeletal: Cyanosis (toes left foot)
Skin: Other (toes are cyanotic, cold to touch left foot, no cellulitis or erythema, no signs of infection)
Neuro: Nonfocal/Grossly Intact
Vascular: Capillary Refill Delayed and Pedal Hair Absent
Dorsalis Pedis: Absent
Posterior Tibialis: Absent
--- NOTE | 2024-01-28 19:50 | PTCARENOTE ---
Patient weaned off of LEvophed infusion today. Pt on pulse ox with poor pleth, Use of respiratory tean hand held monitor provides accurate reading and pulse ox checks have remained in 90% range with oxygen at 5L. Pt seen by Cardiovascular team and
yanetn is aware of no pedal pulses and the worsening in color and temperature of bilateral lower extremities. - decreased urine output has been monitored and reported to attending MD>
--- NOTE | 2024-01-28 23:00 | PTCARENOTE ---
Pt HR jumped to 150's and sustaining. Pt does have hx of PAF. EKG obtained, reading rapid afib rvr. EKG sent to KATH. BP 75/37(50). Levo restarted. Initially order received for IV amiodarone. However HR reassessed and returned to 90's. KATH made
aware and holding off on the amiodarone for now.
[2024-01-29] VITALS (25 sets, daily range): BP systolic 51–174; BP diastolic 10–82
--- NOTE | 2024-01-29 00:56 | PTCARENOTE ---
Pt remains on 2 mcg/min of Levophed. BP 96/78(85). HR 98.
[2024-01-29] MEDS: ZOSYN 50 IV (02:25)
--- NOTE | 2024-01-29 04:50 | PTCARENOTE ---
monitor alarming asystole with visible rhythm, RN entered room to check on Pt, monitor alarming bradycardia with HR 0f 39. Pt visibly agonal breathing, unarousable to verbal or hard tactile stimuli, no pulse palpated. Code 9 called. compressions
started.
--- NOTE | 2024-01-29 05:29 | W.PN.DEATH ---
Pronouncement of
-
Called to see patient to pronounce.
No spontaneous heart tones or respirations noted.
Patient not responsive to verbal stimuli.
Patient is pronounced .
Time of : 05:14
Date of : 01/29/24
Family Notified: Yes ( made aware and will come in)
--- NOTE | 2024-01-29 05:31 | W.PN.UPDATE ---
Update Note
Progress Note Update
Earlier this evening patient went into rapid atrial fibrillation and was hypotensive. Levophed restarted and bp improved to WNL and HR remained afib but at controlled rate. [facility] cardiology aware and we discussed possibility of using amiodorone but
rate resolved so this intervention was held. Stability was maintained until 0440 am when she was found by nursing making gurgling noises while bradycardia ensued. Found to be without pulse (PEA) and CPR started immediately and code 9 called
overhead. Multiple messages left with and daughter. He is in agreement to stop CPR at 0514. He will be coming in. Dr. Sweeney from [facility] Cardiology service aware of events.
--- NOTE | 2024-01-29 05:52 | W.PN.UPDATE ---
Update Note
Progress Note Update
[id number] Responded to Code 9, patient found pulseless with agonal breaths, PEA arrest and CPR was started. See Code 9 sheet for full details: rounds of epi, bicarb, calcium gluconate. Dr. Sofie Arnold, hospitalist; [facility]
ETHEL, and Teresa STOCKTON (hospitalist [employer] TECHNICIAN). Patient was intubated by [employer] [employer] during code. Time of was called at 0514. Family was notified by Teresa STOCKTON.
--- NOTE | 2024-01-29 08:57 | W.DCSUMMARY ---
Discharge Summary
Discharge Data
Date of Admission: 01/25/24
Date of Discharge: 01/29/24
-
Pending Results: No
Hospital Course
Patient 78 years old female history of CAD, CHF, COPD, hypertension, pulmonary hypertension, tricuspid regurgitation, mitral regurgitation, came into the hospital with left lower extremity cellulitis and ischemic pain in her left leg. Patient was
found to have dry gangrene of her left toes and also signs of critical limb ischemia in her left lower extremity. She was started on heparin drip and broad-spectrum IV antibiotics. Vascular surgery consulted. ID was consulted as well. Vascular
surgery was recommended doing a CTA with runoff but patient complicated with LARA and nephrology was consulted and this was placed on hold. She had several electrolyte abnormalities and she was given fluid and electrolyte replaced. She also had
abnormalities of arrhythmias for which cardiology consulted. Patient continued to have clinical deterioration and required pressors. Unfortunately, despite best treatment patient continued to do worse and went into cardiac arrest overnight with
PEA arrest and CPR and ACLS initiated but unsuccessful. Patient on 01/29/2024 at 5:14.
Discharge duration: 33 minutes
Discharge Plan
-
Patient Disposition:
Date/Time
Date/Time: 01/29/24 05:14
Discharge Date and Time
Discharge Date/Time: 01/29/24 05:14
Print Language: BELARUSIAN
--- NOTE | 2024-01-29 08:59 | CM ---
Addendum entered by Kimberly Mccord RN 01/29/24 09:05:
CM asked family if they wanted to see the catering server also and they declined.
Original Note:
Notified that patient had and requested contact. Spoke with Bernabe and daughter Caitlyn and expressed my sympathy for their loss. They asked to know what to do and advised they need to contact a home. Offered to
provide names and #s of homes in [facility] and they decided they will choose one on their own.
== END 2024-01-29 05:14 | disposition expired | DRG 300 ==
LOC: IMU 21:56
PROVIDERS: Nurse Practitioner Gerontology; Specialist; ADMITTING PHYSICIAN Hospitalist; ATTENDING PHYSICIAN Hospitalist; CONSULT PHYSICIAN Internal Medicine; CONSULT PHYSICIAN Podiatrist Foot & Ankle Surgery; CONSULT PHYSICIAN Surgery Vascular Surgery; EMERGENCY PHYSICIAN Student in an Organized Health Care Education/Training Program; FAMILY PHYSICIAN Internal Medicine; OTHER PHYSICIAN Internal Medicine Infectious Disease
PROC: 0CHY7BZ Insertion of Airway into Mouth and Throat, Via Natural or Artificial Opening (ICD-10-PCS; 2024-01-29)
PROC: 5A12012 Performance of Cardiac Output, Single, Manual (ICD-10-PCS; 2024-01-29)
DX: I70.262 Atherosclerosis of native arteries of extremities with gangrene, left leg (principal); E87.20 Acidosis, unspecified; I13.0 Hypertensive heart and chronic kidney disease with heart failure and stage 1 through stage 4 chronic kidney disease, or unspecified chronic kidney disease; I50.32 Chronic diastolic (congestive) heart failure; J96.11 Chronic respiratory failure with hypoxia; N17.9 Acute kidney failure, unspecified; Z68.1 Body mass index [BMI] 19.9 or less, adult; I46.9 Cardiac arrest, cause unspecified; J44.9 Chronic obstructive pulmonary disease, unspecified; I48.0 Paroxysmal atrial fibrillation; I95.9 Hypotension, unspecified; E87.5 Hyperkalemia; I08.1 Rheumatic disorders of both mitral and tricuspid valves; L03.032 Cellulitis of left toe; R63.6 Underweight; N18.32 Chronic kidney disease, stage 3b; Z99.81 Dependence on supplemental oxygen; Z79.899 Other long term (current) drug therapy; Z79.01 Long term (current) use of anticoagulants; I25.10 Atherosclerotic heart disease of native coronary artery without angina pectoris; I27.29 Other secondary pulmonary hypertension; I27.81 Cor pulmonale (chronic); T50.2X5A Adverse effect of carbonic-anhydrase inhibitors, benzothiadiazides and other diuretics, initial encounter; Z87.891 Personal history of nicotine dependence
CPT/HCPCS: 73630; 76775; 80048; 80053; 80202; 81003; 82533; 82570; 83605; 83735; 84300; 84443; 85025; 85027; 85730; 86140; 93005; 93306; 93922; 93925; 93971; 94640; 96374; 96375; 99285; J7030